=== PATIENT | male | born 1950 | race Caucasian/White ===

== ENCOUNTER 2017-01-21 15:35 | Inpatient (IN) | payer OTHER ==
[2017-01-21] VITALS (10 sets, daily range): BP systolic 79–97; BP diastolic 51–64
[~2017-01-21] VITALS: Ht 172.7 cm; Wt 75.7 kg
[2017-01-21] MEDS ORDERED: IV NORMAL SALINE 1000ML BAG 1,000 ML IV SCH (16:20)
--- NOTE | 2017-01-21 16:24 | ED.ADGEN ---
Adult General Chief Complaint Chief Complaint: ALTERED MENTAL STATUS HPI HPI Patient is a 70 year old male brought to the emergency department by EMS. Per report, he has had a 9 day history of nausea, vomiting, and diarrhea. Patient is currently altered, by no history. The "friend" who is in the room with him has provided a list of his medications and limited history to include daily alcohol consumption except for the last 5 days. Review of Systems Review of Systems Unable to obtain due to the patient's clinical condition Current Medications Current Medications Current Medications Medications (Trade) Dose Ordered Sig/Amador Start Time Stop Time Status Last Admin Dose Admin Ondansetron HCl 4 mg 4 mg PRN Q8HRS PRN 01/21/17 17:45 01/22/17 17:44 Potassium Chloride/Sodium Chloride (KCl 40 Meq-NS 1,000 ml Iv Soln) 1,000 ml @ 75 mls/hr 1X ONCE 01/21/17 17:15 01/22/17 06:34 01/21/17 17:15 75 MLS/HR Sodium Chloride (Iv Sodium Chloride 0.9% 1000ml Bag) 1,000 ml @ 125 mls/hr Q8H 01/21/17 18:00 01/22/17 17:59 01/21/17 17:51 125 MLS/HR Allergies Allergies Allergies Coded Allergies Type Severity Reaction Last Updated Verified Unable to Assess 01/21/17 No Physical Exam Physical Exam Constitutional: Well developed, well nourished, no acute distress, non-toxic appearance. [] HENT: Normocephalic, atraumatic, bilateral external ears normal, oropharynx moist, no oral exudates, nose normal. [] Eyes: Left pupil is 2 mm right pupil is 4 mm, EOMI, conjunctiva normal, no discharge. [] Neck: Normal range of motion, no tenderness, supple, no stridor. [] Cardiovascular:Heart rate regular rhythm, no murmur [] Lungs & Thorax: Bilateral breath sounds clear to auscultation [] Abdomen: Bowel sounds normal, soft, no tenderness, no masses, no pulsatile masses. [] Skin: Warm, dry, no erythema, no rash. [] Back: No tenderness, no CVA tenderness. [] Extremities: No tenderness, no cyanosis, no clubbing, ROM intact, no edema. [] Neurologic: Alert and oriented X 1, normal motor function, normal sensory function, no focal deficits noted. [] Psychologic: Affect normal, judgement normal, mood normal. [] Current Patient Data Vital Signs Vital Signs Date Time Temp Pulse Resp B/P Pulse Ox O2 Delivery O2 Flow Rate FiO2 01/21/17 15:35 97.6 112 24 147/89 98 Nasal Cannula 2 97.6 Lab Values Laboratory Tests Test 01/21/17 16:10 01/21/17 16:35 White Blood Count 13.7x10^3/uL (4.0-11.0) H Red Blood Count 3.35x10^6/uL (4.30-5.70) L Hemoglobin 11.6g/dL (13.0-17.5) L Hematocrit 34.4% (39.0-53.0) L Mean Corpuscular Volume 103fL (79-100) H Mean Corpuscular Hemoglobin 35pg (25-35) Mean Corpuscular Hemoglobin Concent 34g/dL (31-37) Red Cell Distribution Width 15.0% (11.5-14.5) H Platelet Count 190x10^3/uL (140-400) Neutrophils (%) (Auto) 79% (31-73) H Lymphocytes (%) (Auto) 12% (24-48) L Monocytes (%) (Auto) 9% (0-9) Eosinophils (%) (Auto) 0% (0-3) Basophils (%) (Auto) 1% (0-3) Neutrophils # (Auto) 10.8x10^3uL (1.8-7.7) H Lymphocytes # (Auto) 1.6x10^3/uL (1.0-4.8) Monocytes # (Auto) 1.2x10^3/uL (0.0-1.1) H Eosinophils # (Auto) 0.0x10^3/uL (0.0-0.7) Basophils # (Auto) 0.1x10^3/uL (0.0-0.2) Sodium Level 131mmol/L (136-145) L Potassium Level 2.8mmol/L (3.5-5.1) *L Chloride Level 91mmol/L (98-107) L Carbon Dioxide Level 28mmol/L (21-32) Anion Gap 12 (6-14) Blood Urea Nitrogen 15mg/dL (8-26) Creatinine 1.3mg/dL (0.7-1.3) Estimated GFR (Cockcroft-Gault) 54.9 BUN/Creatinine Ratio 12 (6-20) Glucose Level 104mg/dL (70-99) H Lactic Acid Level 4.2mmol/L (0.4-2.0) *H Calcium Level 8.2mg/dL (8.5-10.1) L Total Bilirubin 1.5mg/dL (0.2-1.0) H Aspartate Amino Transferase (AST) 51U/L (15-37) H Alanine Aminotransferase (ALT) 22U/L (16-63) Alkaline Phosphatase 304U/L (46-116) H Ammonia 28mcmol/L (11-34) Creatine Kinase 50U/L (39-308) Troponin I Quantitative 0.017ng/mL (0.000-0.055) RZ-Qlg-A-Type Natriuretic Peptide 1049pg/mL (0-124) H Total Protein 6.5g/dL (6.4-8.2) Albumin 2.7g/dL (3.4-5.0) L Albumin/Globulin Ratio 0.7 (1.0-1.7) L Lipase 30U/L (73-393) L Ethyl Alcohol Level < 10mg/dL (0-10) Prothrombin Time 13.9SEC (11.7-14.0) Prothrombin Time INR 1.1 (0.8-1.1) PTT 28SEC (24-38) Laboratory Tests 01/21/17 16:10 Laboratory Tests 01/21/17 16:10 EKG EKG [] Radiology/Procedures Radiology/Procedures Chest x-ray interpreted by me, no acute cardiopulmonary process. [] Course & Med Decision Making Course & Med Decision Making Pertinent Labs and Imaging studies reviewed. (See chart for details) Patient is certainly altered. He is also hypokalemic and we have started replace that here in emergency department. He shows evidence of mild heart failure. He does have little bit elevated lactate and leukocytosis however his x -ray is clear. Urine is pending at the time of admission. His blood pressures responding to the fluid bolus. I did speak with Dr. Kee regarding the patient's care. [] Dragon Disclaimer Dragon Disclaimer This electronic medical record was generated, in whole or in part, using a voice recognition dictation system. IMAN BOBO MD Jan 21, 2017 16:23
[2017-01-21] MEDS ORDERED: ONDANSETRON PF 4 MG/2 ML VIAL. IV ONE (16:30)
[2017-01-21 16:32] LABS: BASO # 0.1 x10^3/uL (0.0-0.2); BASO % 1 % (0-3); EOS % 0 % (0-3); HEMATOCRIT 34.4 % (39.0-53.0); HEMOGLOBIN 11.6 g/dL (13.0-17.5); LYMPH # 1.6 x10^3/uL (1.0-4.8); LYMPH % 12 % (24-48); MEAN CORPUSCULAR HEMOGLOBIN 35 pg (25-35); MEAN CORPUSCULAR HGB CONC 34 g/dL (31-37); MEAN CORPUSCULAR VOLUME 103 fL (79-100); MONO % 9 % (0-9); NEUT % 79 % (31-73); PLATELET COUNT 190 x10^3/uL (140-400); RED BLOOD COUNT 3.35 x10^6/uL (4.30-5.70); WHITE BLOOD COUNT 13.7 x10^3/uL (4.0-11.0)
[2017-01-21 16:54] LABS: ALBUMIN 2.7 g/dL (3.4-5.0); ALBUMIN/GLOBULIN RATIO 0.7 (1.0-1.7); CALCIUM 8.2 mg/dL (8.5-10.1); CREATININE 1.3 mg/dL (0.7-1.3); GFR 54.9; TOTAL BILIRUBIN 1.5 mg/dL (0.2-1.0); TOTAL PROTEIN 6.5 g/dL (6.4-8.2)
[2017-01-21 16:57] LABS: POTASSIUM 2.8 mmol/L (3.5-5.1)
[2017-01-21 17:02] LABS: INR 1.1 (0.8-1.1); PROTHROMBIN TIME PATIENT 13.9 SEC (11.7-14.0)
--- NOTE | 2017-01-21 17:05 | RAD ---
PROCEDURE CT head without contrast dated 01/21/2017. HISTORY Altered mental status. TECHNIQUE Contiguous axial imaging of the head was performed from skull base to vertex.Exposure: One or more of the following individualized dose reduction techniques were utilized for this exam: 1. Automated exposure control. 2. Adjustment of the mA and/or kV according to patient size. 3. Use of iterative reconstruction technique. COMPARISON None. FINDINGS Ventricles and sulci are mildly prominent for age. No midline shift or mass effect. Minimal patchy low density in the deep/subcortical periventricular white matter. No hemorrhage or extra-axial collection. Posterior fossa and brainstem unremarkable. Visualized paranasal sinuses and mastoid air cells are clear. No acute calvarial abnormality. IMPRESSION - No evidence of acute intracranial hemorrhage or mass. - Age advanced atrophy. Electronically signed by: Tavon Camacho (Jan 21, 2017 17:03:38)
[2017-01-21] MEDS ORDERED: POTASSIUM CL 40MEQ IN 0.9%NACL 1,000 ML IV ONE (17:15)
[2017-01-21] MEDS ORDERED: ONDANSETRON PF 4 MG/2 ML VIAL. IV PRN (17:45)
[2017-01-21] MEDS: IV NORMAL SALINE 1000ML BAG 1,000 ML IV SCH (17:51)
[2017-01-21] MEDS ORDERED: HALOPERIDOL LACTATE 5 MG/ML VIAL. IVP PRN ×2 (20:30→21:00)
[2017-01-21] MEDS: POTASSIUM CHLORIDE 10MEQ 100 ML IV SCH ×3 (20:54→23:56)
[2017-01-21] MEDS: NOREPINEPHRINE VIAL 8 MG in IV NORMAL SALINE 250ML 250 ML IV PRN (21:52)
[2017-01-21] MEDS ORDERED: MULTIVIT INFUSN,ADULT 4,VIT K 10 ML, FOLIC ACID 1 MG, THIAMINE 100 MG in IV DEXTROSE 5 ... IV SCH (22:00)
[2017-01-21] MEDS ORDERED: LORA10TA3 PO (23:15)
[2017-01-21] MEDS ORDERED: FOLI1TAB16 PO (23:15)
[2017-01-21] MEDS ORDERED: FERR-26 PO (23:15)
[2017-01-21] MEDS ORDERED: PANT40TA5 PO (23:15)
[2017-01-21] MEDS ORDERED: LOSA1TAB16 PO (23:15)
[2017-01-22] VITALS (43 sets, daily range): BP systolic 65–119; BP diastolic 39–78
[2017-01-22] MEDS: POTASSIUM CHLORIDE 10MEQ 100 ML IV SCH ×5 (01:56→11:52)
[2017-01-22 06:01] LABS: BASO # 0.1 x10^3/uL (0.0-0.2); BASO % 1 % (0-3); EOS % 2 % (0-3); HEMATOCRIT 28.6 % (39.0-53.0); HEMOGLOBIN 9.7 g/dL (13.0-17.5); LYMPH # 3.3 x10^3/uL (1.0-4.8); LYMPH % 23 % (24-48); MEAN CORPUSCULAR HEMOGLOBIN 35 pg (25-35); MEAN CORPUSCULAR HGB CONC 34 g/dL (31-37); MEAN CORPUSCULAR VOLUME 104 fL (79-100); MONO % 10 % (0-9); NEUT % 65 % (31-73); PLATELET COUNT 181 x10^3/uL (140-400); RED BLOOD COUNT 2.75 x10^6/uL (4.30-5.70); WHITE BLOOD COUNT 14.4 x10^3/uL (4.0-11.0)
[2017-01-22 06:38] LABS: ALBUMIN 2.1 g/dL (3.4-5.0); ALBUMIN/GLOBULIN RATIO 0.7 (1.0-1.7); CALCIUM 7.4 mg/dL (8.5-10.1); GFR 75.2; MAGNESIUM 1.6 mg/dL (1.8-2.4); POTASSIUM 3.1 mmol/L (3.5-5.1); TOTAL BILIRUBIN 1.3 mg/dL (0.2-1.0); TOTAL PROTEIN 5.2 g/dL (6.4-8.2)
[2017-01-22 06:50] LABS: BARBITURATES NEG (NEG); BENZODIAZEPINES NEG (NEG); CANNABINOIDS POS (NEG); COCAINE NEG (NEG); METHADONE NEG (NEG); OPIATES NEG (NEG); PHENCYCLIDINE NEG (NEG)
[2017-01-22 06:52] LABS: ETHANOL, URINE NEG (NEG)
[2017-01-22 07:00] LABS: BILIRUBIN,URINE MODERATE (NEG); GLUCOSE,URINE NEGATIVE (NEG); NITRITE,URINE POSITIVE (NEG); PH,URINE 6.5; PROTEIN,URINE 30 mg/dL (NEG-TRACE)
[2017-01-22 07:15] LABS: BACTERIA,URINE 0 /HPF (0-FEW); RBC,URINE 0 /HPF (0-2); SQUAMOUS EPITHELIAL CELL,UR FEW /LPF
[2017-01-22] MEDS ORDERED: POTASSIUM CHLORIDE 10MEQ 100 ML IV PRN ×3 (08:15)
--- NOTE | 2017-01-22 08:29 | RAD ---
EXAM: Chest, single view. HISTORY: Altered mental status. COMPARISON: None. FINDINGS: A frontal view of the chest is obtained. There is no infiltrate, effusion or pneumothorax. There is mild biapical pleural-parenchymal scarring. There is a calcified granuloma within the left lung base. The heart is normal in size. IMPRESSION: No acute pulmonary finding.
[2017-01-22] MEDS: IV NORMAL SALINE 1000ML BAG 1,000 ML IV SCH ×2 (08:39→14:00)
[2017-01-22] MEDS ORDERED: MAGNESIUM SULFATE 4GM 100 ML IV PRN (09:00)
--- NOTE | 2017-01-22 09:57 | PDOC ---
Provider Note Provider Note See admission H&P dictation #[id number] Impression: 1. Sepsis as manifested by leukocytosis, hypotension, encephalopathy, lactic acidosis possibly due to prostate etiology: 2. Hypotension probably due to dehydration or sepsis, rule out cardiomyopathy: 3. Alcohol abuse and possible withdrawal: 4. Encephalopathy, multifactorial: 5. Possible prostatitis/UTI: 6. History of hypertension: 7. Hypokalemia: 8. Nausea, vomiting, diarrhea with possible alcoholic hepatitis: 9. Low magnesium level: 10. Moderate/severe protein malnutrition: 11. History of hepatitis C: 12. COPD: 13. Debilitation: ERIC HAND MD Jan 22, 2017 09:57
[2017-01-22] MEDS: CEFTRIAXONE SODIUM 1 GM in IV NORMAL SALINE 50ML 50 ML IV SCH (10:10)
[2017-01-22] MEDS: IPRATRPIUM/ALBUTEROL 0.5/2.5MG 3 ML NEBU. NEB SCH ×3 (11:26→19:31)
--- NOTE | 2017-01-22 13:02 | CARD ---
APPROVED REPORT EXAM: Two-dimensional and M-mode echocardiogram with Doppler and color Doppler. Other Information Quality : Fair INDICATION LV Function:Systolic Rule out Cardiomyopathy 2D DIMENSIONS RVDd2.3 (2.9-3.5cm)Left Atrium(2D)3.5 (1.6-4.0cm) IVSd1.3 (0.7-1.1cm)Aortic Root(2D)2.6 (2.0-3.7cm) LVDd3.8 (3.9-5.9cm)LVOT Diameter2.0 (1.8-2.4cm) PWd1.0 (0.7-1.1cm)LVDs2.4 (2.5-4.0cm) FS (%) 30.0 %SV42.2 ml LVEF(%)60.0 (>50%) Aortic Valve AoV Peak Aly.125.3cm/sAoV VTI19.5cm AO Peak GR.6.3mmHgLVOT VTI 14.49cm AO Mean GR.3mmHgAVA (VTI)2.30cm2 Mitral Valve MV E Mvtgrnym329.2cm/sMV E Peak Gr.12mmHg MV DECEL [id number] A Gkfpfdgl916.8cm/s MV E Mean Gr.5mmHgE/A Ratio0.8 MVA (PHT)3.20cm2 TDI Lateral E' P. V5.73cm/sMedial E' P. V6.37cm/s E/Lateral E'24.8E/Medial E'22.3 Tricuspid Valve TR P. [id number]/sRAP QHCVHRAD1bxLw TR Peak Gr.96xnIgBKTM60evMj Pulmonary Vein S1 Zlzjevkv51.8cm/sS2 Zdwozgzu94.43cm/s D2 Umncitdi20.4cm/sPVa plombkfm148zjet LEFT VENTRICLE The left ventricle is normal size. There is mild concentric left ventricular hypertrophy. The left ve ntricular systolic function is normal and the ejection fraction is within normal range. The Ejection Fraction is 55-60%. Transmitral Doppler flow pattern is Grade I-abnormal relaxation pattern. RIGHT VENTRICLE The right ventricle is normal size. The right ventricular systolic function is normal. ATRIA The left atrium size is normal. The right atrium size is normal. The interatrial septum is intact wit h no evidence for an atrial septal defect or patent foramen ovale as noted on 2-D or Doppler imaging. AORTIC VALVE The aortic valve is calcified but opens well. Doppler and Color Flow revealed no significant aortic r egurgitation. There is no significant aortic valvular stenosis. MITRAL VALVE The mitral valve is moderately thickened with decreased opening. There is no evidence of mitral valve prolapse. There is mild mitral valve stenosis. Doppler and Color-flow revealed mild mitral regurgita tion. TRICUSPID VALVE The tricuspid valve is normal in structure and function. Doppler and Color Flow revealed trace tricus pid regurgitation. The PA pressure was estimated at 30 mmHg. There is no tricuspid valve stenosis. PULMONIC VALVE The pulmonary valve is normal in structure and function. Doppler and Color Flow revealed trace pulmon ic valvular regurgitation. There is no pulmonic valvular stenosis. GREAT VESSELS The aortic root is normal in size. The ascending aorta is mildly dilated at 3.8 cm. The IVC was not v isualized. PERICARDIAL EFFUSION There is no evidence of significant pericardial effusion. Critical Notification Critical Value: No <Conclusion> The left ventricle is normal size. The left ventricular systolic function is normal and the ejection fraction is within normal range. The Ejection Fraction is 55-60%. There is mild concentric left ventricular hypertrophy. There is no significant aortic valvular stenosis. Doppler and Color Flow revealed no significant aortic regurgitation. Doppler and Color-flow revealed mild mitral regurgitation. Doppler and Color Flow revealed trace tricuspid regurgitation. The PA pressure was estimated at 30 mmHg. The ascending aorta is mildly dilated at 3.8 cm.
--- NOTE | 2017-01-22 13:12 | HP ---
ADMIT DATE: 01/22/2017 ATTENDING PHYSICIAN: Yane Fuller M.D. CHIEF COMPLAINT: Altered mental status. HISTORY OF PRESENT ILLNESS: The patient is a 66-year-old male with a history of COPD and alcohol abuse who presented to the Emergency Room with his significant other after becoming increasingly confused. The patient had his last drink of alcohol, which he usually drinks a half a pint a day of liquor approximately 8 days prior. After that, he developed nausea, vomiting and diarrhea. He was unable to keep down any food and very minimal liquids over the course of that 8 days. He was progressively weaker. He denies any hematemesis or hematochezia. He denies any abdominal pain. No fever. He does not have a history of alcohol withdrawal symptoms in the past 20 years, quit drinking alcohol per his significant other report. PAST MEDICAL HISTORY: Significant for hypertension, COPD, hepatitis C, alcohol abuse, dyspepsia, iron deficiency anemia. 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 ALLERGIES TO MEDICATIONS: No known drug allergies. MEDICATIONS: At the time of admission include iron 325 mg p.o. daily, Protonix 40 mg p.o. daily, Combivent 1 puff q.i.d., loratadine 10 mg p.o. daily, folic acid 1 mg p.o. daily, losartan/hydrochlorothiazide 50/12.5 mg one p.o. daily. FAMILY HISTORY: Noncontributory. SOCIAL HISTORY: The patient lives with his significant other. He drinks about one half pint per day, he usually, but quit 8 days ago due to his illness. He normally smokes 1-1/2 packs per day. REVIEW OF SYSTEMS: The patient denies any fevers. He did have a mild headache last night after admission. Denies any visual changes, no excessive agitation, swallowing without difficulty. Denies any shortness of breath or cough of any significance. Denies any chest pain or palpitations. No lower extremity swelling. Denies any abdominal bloating or discomfort. Denies any dysuria, but he does have some difficulty urinating at times. We did notice there was difficulty in passing the Burnette catheter on admission. He denies any focal paresthesias or weakness, although he does have generalized weakness in the lower extremities as he mostly just sits in the chair all day and does not get up and walk all that much. PHYSICAL EXAMINATION: VITAL SIGNS: At the time of admission, temperature 97.6, pulse 112, respiratory rate 24, blood pressure 147/89 with O2 sat of 98% on room air. GENERAL: Currently, the patient is lying in bed in no acute distress. He is able to carry on a full code here in conversation. He is oriented to person, place and day of the week. HEENT: The pupils are equal and round. The extraocular motions are intact. The sclerae are anicteric. The oropharynx is moist. Dentition is poor. NECK: Without JVD or bruit. CHEST: Has mildly decreased air movement throughout, but otherwise is clear. CARDIOVASCULAR: The heart has regular rate and rhythm without murmur, although the heart sounds are distant. ABDOMEN: Soft and nontender, without any guarding or rebound. EXTREMITIES: Without edema. He has SCDs on at present. NEUROLOGIC: He moves the extremities symmetrically. Sensation appears to be intact to light touch. PSYCHIATRIC: Mood and affect appear appropriate. He denies any depression. LABORATORY DATA: At the time of admission, sodium 131, potassium 2.8, chloride 91, CO2 of 28, BUN 15, creatinine 1.3, glucose 104, calcium 8.2, albumin was 2.7, total bilirubin was 1.5, AST is 51, alkaline phosphatase is 304. CK was 50. Troponin was 0.017. BNP was 1049. Lipase was 30. Urine drug screen was negative for alcohol, positive for marijuana. UA shows specific gravity of 1.025, protein 30, ketones trace, nitrite positive, bilirubin moderate, leukocyte esterase small, wbc 1-4, squamous epithelial cells few, urine mucus marked. WBC 13.7, hemoglobin 11.6, hematocrit 34.4, platelets 190 with 79 segs, [address] of the head showed no evidence of acute intracranial hemorrhage or mass. There is age advanced atrophy. X-ray of the chest shows no acute pulmonary findings. There is mild biapical pleural parenchymal scarring, calcified granuloma in the left lung base. The heart was normal in size. IMPRESSION: 1. Sepsis is manifest by leukocytosis, hypotension, encephalopathy with lactic acidosis, possibly due to prostate infection etiology. 2. Hypotension, probably due to dehydration or sepsis, rule out cardiomyopathy. 3. Alcohol abuse with possible withdrawal. 4. Encephalopathy, probably multifactorial in etiology. 5. Possible prostatitis, urinary tract infection. 6. History of hypertension. 7. Hypokalemia. 8. Nausea, vomiting, diarrhea with possible alcoholic hepatitis superimposed on chronic hepatitis C. 9. Low magnesium level. 10. Debilitation. 11. COPD. 12. Moderate to severe protein malnutrition. PLAN: The patient is admitted. He is receiving vigorous IV fluid hydration. We will check an echocardiogram to evaluate his heart, with his hypotension, he is on pressors at present. His encephalopathy appears to be much improved with fluid resuscitation. Given his elevated white blood cell count, difficulty passing the Burnette and mildly abnormal UA, we will begin him on empiric antibiotics with Rocephin for possible prostatitis, which could have been contributing to his symptoms. Blood cultures and urine culture pending at present and we can deescalate the antibiotics if those were all negative and he continues to improve, we can consider deescalating the antibiotics. We will hold his blood pressure medicine at present. We will monitor for other withdrawal symptoms. We will replace his potassium and magnesium. We will slowly advance his diet and nutrition evaluation regarding his protein malnutrition. We will also use nebulizer treatments for his COPD history. ERIC HAND MD DR: EZEQUIEL/rodney JOB#: [id number] / [id number]
[2017-01-22] MEDS: CETIRIZINE HCL 10 MG TABLET. PO SCH (14:00)
[2017-01-22] MEDS: FERROUS SULFATE 325 MG TABLET. PO SCH (14:00)
[2017-01-22] MEDS: FOLIC ACID 1 MG TABLET. PO SCH (14:00)
[2017-01-22] MEDS: PANTOPRAZOLE 40 MG TABLET.DR. PO SCH (14:00)
[2017-01-22] MEDS ORDERED: LORAZEPAM 0.5 MG TABLET. PO PRN (17:30)
[2017-01-22] MEDS: LORAZEPAM 1 MG TABLET. PO PRN (17:36)
[2017-01-22 18:53] LABS: MAGNESIUM 2.5 mg/dL (1.8-2.4); POTASSIUM 3.5 mmol/L (3.5-5.1)
[2017-01-22] MEDS ORDERED: POTASSIUM CHLORIDE 20 MEQ TABLET.ER. PO ONE (20:30)
[2017-01-22] MEDS: NOREPINEPHRINE VIAL 8 MG in IV NORMAL SALINE 250ML 250 ML IV PRN (20:32)
[2017-01-23] VITALS (18 sets, daily range): BP systolic 88–135; BP diastolic 58–85
[2017-01-23] MEDS: IV NORMAL SALINE 1000ML BAG 1,000 ML IV SCH ×2 (00:36→17:30)
[2017-01-23 04:33] LABS: BASO # 0.2 x10^3/uL (0.0-0.2); BASO % 1 % (0-3); EOS % 2 % (0-3); HEMATOCRIT 27.5 % (39.0-53.0); LYMPH # 2.7 x10^3/uL (1.0-4.8); LYMPH % 17 % (24-48); MEAN CORPUSCULAR HEMOGLOBIN 35 pg (25-35); MEAN CORPUSCULAR HGB CONC 33 g/dL (31-37); MEAN CORPUSCULAR VOLUME 107 fL (79-100); MONO % 9 % (0-9); NEUT % 72 % (31-73); PLATELET COUNT 192 x10^3/uL (140-400); RED BLOOD COUNT 2.58 x10^6/uL (4.30-5.70); RED CELL DISTRIBUTION WIDTH 15.1 % (11.5-14.5); WHITE BLOOD COUNT 16.5 x10^3/uL (4.0-11.0)
[2017-01-23 04:46] LABS: ALBUMIN/GLOBULIN RATIO 0.7 (1.0-1.7); CALCIUM 7.5 mg/dL (8.5-10.1); CREATININE 0.7 mg/dL (0.7-1.3); GFR 113.5; POTASSIUM 3.9 mmol/L (3.5-5.1); TOTAL BILIRUBIN 0.8 mg/dL (0.2-1.0)
[2017-01-23] MEDS: NOREPINEPHRINE VIAL 8 MG in IV NORMAL SALINE 250ML 250 ML IV PRN (06:08)
--- NOTE | 2017-01-23 08:46 | PDOC ---
PROGRESS NOTES Subjective Subjective Patient asking to transfer out of ICU. Alert and oriented but appears somewhat forgetful. Objective Objective Vital Signs Date Time Temp Pulse Resp B/P Pulse Ox O2 Delivery O2 Flow Rate FiO2 01/23/17 06:00 107 14 125/80 98 Nasal Cannula 2.0 01/23/17 03:00 98.7 98.7 Intake and Output 01/23/17 07:00 Intake Total 5179 ml Output Total 3000 ml Balance 2179 ml Intake IV Total 2450 ml Other 2729 ml Output Urine Total 3000 ml Physical Exam Abdomen: Normal bowel sounds, Soft, No tenderness Heart: Regular rate Extremities: No edema General: Alert, No acute distress Lungs: Other (BS mildly decreased throughout but otherwise CTA) Assessment Assessment Problems Medical Problems: (1) Alcohol abuse Status: Acute (2) Encephalopathy Status: Acute (3) Heart failure Status: Acute (4) Hypokalemia Status: Acute Plan Plan of Care 1. Sepsis - hypotension has improved, trying him off pressors presently. Blood and urine cultures negative to date, afebrile. Continue Rocephin for possible UTI or prostatitis. Can move out of ICU if off pressors. Echo showed mild diastolic dysfunction with preserved EF. 2. electrolyte abnormalities - improved. Does not need IVF now, taking po well and BUN now low. Fluids stopped, follow labs. 3. COPD - stable, continue nebs as needed. Patient declines nicotine patch. 4. anemia - patient has history of this. Hgb lower now but suspect some of that is dilutional. No evidence of acute bleeding. Continue po Fe and follow. 5. alcohol abuse with history of Hep C - no s/s of withdrawal, prn meds available for this if needed. AST mildly elevated. 6. urinary retention - some difficulty passing [place] at admission. Continue catheter for another 24 hours, then attempt voiding trial. Comment Review of Relevant I have reviewed the following items christie (where applicable) has been applied. Labs Laboratory Tests Test 01/21/17 16:10 01/21/17 16:35 01/21/17 17:40 01/21/17 20:00 White Blood Count 13.7x10^3/uL (4.0-11.0) Red Blood Count 3.35x10^6/uL (4.30-5.70) Hemoglobin 11.6g/dL (13.0-17.5) Hematocrit 34.4% (39.0-53.0) Mean Corpuscular Volume 103fL (79-100) Mean Corpuscular Hemoglobin 35pg (25-35) Mean Corpuscular Hemoglobin Concent 34g/dL (31-37) Red Cell Distribution Width 15.0% (11.5-14.5) Platelet Count 190x10^3/uL (140-400) Neutrophils (%) (Auto) 79% (31-73) Lymphocytes (%) (Auto) 12% (24-48) Monocytes (%) (Auto) 9% (0-9) Eosinophils (%) (Auto) 0% (0-3) Basophils (%) (Auto) 1% (0-3) Neutrophils # (Auto) 10.8x10^3uL (1.8-7.7) Lymphocytes # (Auto) 1.6x10^3/uL (1.0-4.8) Monocytes # (Auto) 1.2x10^3/uL (0.0-1.1) Eosinophils # (Auto) 0.0x10^3/uL (0.0-0.7) Basophils # (Auto) 0.1x10^3/uL (0.0-0.2) Sodium Level 131mmol/L (136-145) Potassium Level 2.8mmol/L (3.5-5.1) Chloride Level 91mmol/L (98-107) Carbon Dioxide Level 28mmol/L (21-32) Anion Gap 12 (6-14) Blood Urea Nitrogen 15mg/dL (8-26) Creatinine 1.3mg/dL (0.7-1.3) Estimated GFR (Cockcroft-Gault) 54.9 BUN/Creatinine Ratio 12 (6-20) Glucose Level 104mg/dL (70-99) Lactic Acid Level 4.2mmol/L (0.4-2.0) 3.2mmol/L (0.4-2.0) Calcium Level 8.2mg/dL (8.5-10.1) Total Bilirubin 1.5mg/dL (0.2-1.0) Aspartate Amino Transf (AST/SGOT) 51U/L (15-37) Alanine Aminotransferase (ALT/SGPT) 22U/L (16-63) Alkaline Phosphatase 304U/L (46-116) Ammonia 28mcmol/L (11-34) Creatine Kinase 50U/L (39-308) Troponin I Quantitative 0.017ng/mL (0.000-0.055) KU-Iby-H-Type Natriuretic Peptide 1049pg/mL (0-124) Total Protein 6.5g/dL (6.4-8.2) Albumin 2.7g/dL (3.4-5.0) Albumin/Globulin Ratio 0.7 (1.0-1.7) Lipase 30U/L (73-393) Ethyl Alcohol Level < 10mg/dL (0-10) Prothrombin Time 13.9SEC (11.7-14.0) Prothromb Time International Ratio 1.1 (0.8-1.1) Activated Partial Thromboplast Time 28SEC (24-38) Nasal Screen MRSA (PCR) Negative (Negative) Test 01/22/17 05:00 01/22/17 05:17 01/22/17 18:15 01/23/17 03:55 White Blood Count 14.4x10^3/uL (4.0-11.0) 16.5x10^3/uL (4.0-11.0) Red Blood Count 2.75x10^6/uL (4.30-5.70) 2.58x10^6/uL (4.30-5.70) Hemoglobin 9.7g/dL (13.0-17.5) 9.0g/dL (13.0-17.5) Hematocrit 28.6% (39.0-53.0) 27.5% (39.0-53.0) Mean Corpuscular Volume 104fL (79-100) 107fL (79-100) Mean Corpuscular Hemoglobin 35pg (25-35) 35pg (25-35) Mean Corpuscular Hemoglobin Concent 34g/dL (31-37) 33g/dL (31-37) Red Cell Distribution Width 15.0% (11.5-14.5) 15.1% (11.5-14.5) Platelet Count 181x10^3/uL (140-400) 192x10^3/uL (140-400) Neutrophils (%) (Auto) 65% (31-73) 72% (31-73) Lymphocytes (%) (Auto) 23% (24-48) 17% (24-48) Monocytes (%) (Auto) 10% (0-9) 9% (0-9) Eosinophils (%) (Auto) 2% (0-3) 2% (0-3) Basophils (%) (Auto) 1% (0-3) 1% (0-3) Neutrophils # (Auto) 9.3x10^3uL (1.8-7.7) 11.9x10^3uL (1.8-7.7) Lymphocytes # (Auto) 3.3x10^3/uL (1.0-4.8) 2.7x10^3/uL (1.0-4.8) Monocytes # (Auto) 1.4x10^3/uL (0.0-1.1) 1.5x10^3/uL (0.0-1.1) Eosinophils # (Auto) 0.3x10^3/uL (0.0-0.7) 0.3x10^3/uL (0.0-0.7) Basophils # (Auto) 0.1x10^3/uL (0.0-0.2) 0.2x10^3/uL (0.0-0.2) Sodium Level 133mmol/L (136-145) 137mmol/L (136-145) Potassium Level 3.1mmol/L (3.5-5.1) 3.5mmol/L (3.5-5.1) 3.9mmol/L (3.5-5.1) Chloride Level 98mmol/L (98-107) 106mmol/L (98-107) Carbon Dioxide Level 27mmol/L (21-32) 23mmol/L (21-32) Anion Gap 8 (6-14) 8 (6-14) Blood Urea Nitrogen 13mg/dL (8-26) 7mg/dL (8-26) Creatinine 1.0mg/dL (0.7-1.3) 0.7mg/dL (0.7-1.3) Estimated GFR (Cockcroft-Gault) 75.2 113.5 BUN/Creatinine Ratio 13 (6-20) 10 (6-20) Glucose Level 138mg/dL (70-99) 131mg/dL (70-99) Calcium Level 7.4mg/dL (8.5-10.1) 7.5mg/dL (8.5-10.1) Magnesium Level 1.6mg/dL (1.8-2.4) 2.5mg/dL (1.8-2.4) 2.4mg/dL (1.8-2.4) Total Bilirubin 1.3mg/dL (0.2-1.0) 0.8mg/dL (0.2-1.0) Aspartate Amino Transf (AST/SGOT) 37U/L (15-37) 40U/L (15-37) Alanine Aminotransferase (ALT/SGPT) 18U/L (16-63) 18U/L (16-63) Alkaline Phosphatase 225U/L (46-116) 240U/L (46-116) Total Protein 5.2g/dL (6.4-8.2) 5.0g/dL (6.4-8.2) Albumin 2.1g/dL (3.4-5.0) 2.0g/dL (3.4-5.0) Albumin/Globulin Ratio 0.7 (1.0-1.7) 0.7 (1.0-1.7) Thyroid Stimulating Hormone (TSH) 3.258uIU/mL (0.358-3.74) Urine Collection Type Unknown Urine Color Brown Urine Clarity Clear Urine pH 6.5 Urine Specific [place] 1.025 Urine Protein 30mg/dL (NEG-TRACE) Urine Glucose (UA) Negativemg/dL (NEG) Urine Ketones (Stick) Tracemg/dL (NEG) Urine Blood Negative (NEG) Urine Nitrite Positive (NEG) Urine Bilirubin Moderate (NEG) Urine Urobilinogen Dipstick 1.0mg/dL (0.2 mg/dL) Urine Leukocyte Esterase Small (NEG) Urine RBC 0/HPF (0-2) Urine WBC 1-4/HPF (0-4) Urine Squamous Epithelial Cells Few/LPF Urine Bacteria 0/HPF (0-FEW) Urine Mucus Marked/LPF Urine Opiates Screen Neg (NEG) Urine Methadone Screen Neg (NEG) Urine Barbiturates Neg (NEG) Urine Phencyclidine Screen Neg (NEG) Urine Amphetamine/Methamphetamine Neg (NEG) Urine Benzodiazepines Screen Neg (NEG) Urine Cocaine Screen Neg (NEG) Urine Cannabinoids Screen Pos (NEG) Urine Ethyl Alcohol Neg (NEG) Laboratory Tests Test 01/22/17 18:15 01/23/17 03:55 Potassium Level 3.5mmol/L (3.5-5.1) 3.9mmol/L (3.5-5.1) Magnesium Level 2.5mg/dL (1.8-2.4) 2.4mg/dL (1.8-2.4) White Blood Count 16.5x10^3/uL (4.0-11.0) Red Blood Count 2.58x10^6/uL (4.30-5.70) Hemoglobin 9.0g/dL (13.0-17.5) Hematocrit 27.5% (39.0-53.0) Mean Corpuscular Volume 107fL (79-100) Mean Corpuscular Hemoglobin 35pg (25-35) Mean Corpuscular Hemoglobin Concent 33g/dL (31-37) Red Cell Distribution Width 15.1% (11.5-14.5) Platelet Count 192x10^3/uL (140-400) Neutrophils (%) (Auto) 72% (31-73) Lymphocytes (%) (Auto) 17% (24-48) Monocytes (%) (Auto) 9% (0-9) Eosinophils (%) (Auto) 2% (0-3) Basophils (%) (Auto) 1% (0-3) Neutrophils # (Auto) 11.9x10^3uL (1.8-7.7) Lymphocytes # (Auto) 2.7x10^3/uL (1.0-4.8) Monocytes # (Auto) 1.5x10^3/uL (0.0-1.1) Eosinophils # (Auto) 0.3x10^3/uL (0.0-0.7) Basophils # (Auto) 0.2x10^3/uL (0.0-0.2) Sodium Level 137mmol/L (136-145) Chloride Level 106mmol/L (98-107) Carbon Dioxide Level 23mmol/L (21-32) Anion Gap 8 (6-14) Blood Urea Nitrogen 7mg/dL (8-26) Creatinine 0.7mg/dL (0.7-1.3) Estimated GFR (Cockcroft-Gault) 113.5 BUN/Creatinine Ratio 10 (6-20) Glucose Level 131mg/dL (70-99) Calcium Level 7.5mg/dL (8.5-10.1) Total Bilirubin 0.8mg/dL (0.2-1.0) Aspartate Amino Transf (AST/SGOT) 40U/L (15-37) Alanine Aminotransferase (ALT/SGPT) 18U/L (16-63) Alkaline Phosphatase 240U/L (46-116) Total Protein 5.0g/dL (6.4-8.2) Albumin 2.0g/dL (3.4-5.0) Albumin/Globulin Ratio 0.7 (1.0-1.7) Microbiology 01/21/17 Blood Culture - Preliminary, Resulted NO GROWTH AFTER 1 DAY Medications Current Medications Ondansetron HCl 4 mg 4 mg 1X ONCE IV Last administered on 01/21/17 16:29; Start 01/21/17 at 16:30; Stop 01/21/17 at 16:31; Status DC Sodium Chloride 1,000 ml @ 1,000 mls/hr Q1H IV Last administered on 01/21/17 16:29; Start 01/21/17 at 16:20; Stop 01/21/17 at 17:19; Status DC Potassium Chloride/Sodium Chloride (KCl 40 Meq-NS 1,000 ml Iv Soln) 1,000 ml @ 75 mls/hr 1X ONCE IV Last administered on 01/21/17 17:15; Start 01/21/17 at 17: 15; Stop 01/22/17 at 06:34; Status DC Ondansetron HCl 4 mg 4 mg PRN Q8HRS PRN IV NAUSEA/VOMITING; Start 01/21/17 at 17 :45; Stop 01/22/17 at 17:44; Status DC Sodium Chloride 1,000 ml @ 125 mls/hr Q8H IV Last administered on 01/22/17 14: 00; Start 01/21/17 at 18:00; Stop 01/22/17 at 17:59; Status DC Multivitamins 10 ml/Folic Acid 1 mg/Thiamine HCl 100 mg/Dextrose/ Sodium Chloride 1,011.2 ml @ 100 mls/ hr DAILY IV Last administered on 01/21/17 22:10 ; Start 01/21/17 at 22:00; Stop 01/26/17 at 19:07 Norepinephrine Bitartrate 8 mg/ Sodium Chloride 258 ml @ 0 mls/hr CONT PRN IV SEE I/O RECORD Last administered on 01/23/17 06:08; Start 01/21/17 at 20:30 Potassium Chloride (KCl Premix 10meq) 100 ml @ 100 mls/hr Q1H IV Last administered on 01/22/17 01:56; Start 01/21/17 at 21:00; Stop 01/22/17 at 00:59; Status DC Haloperidol Lactate (Haldol) 1 mg PRN Q2HR PRN IVP MILD AGITATION Last administered on 01/22/17 00:00; Start 01/21/17 at 20:30 Haloperidol Lactate 2 mg 2 mg PRN Q2HR PRN IVP MODERATE AGITATION Last administered on 01/22/17 17:40; Start 01/21/17 at 21:00 Potassium Chloride 100 ml @ 100 mls/hr PRN Q1HR PRN IV SEE COMMENTS; Start 01/22/17 at 08:15 Potassium Chloride 100 ml @ 100 mls/hr PRN Q1HR PRN IV SEE COMMENTS; Start 01/22/17 at 08:15 Potassium Chloride 100 ml @ 100 mls/hr PRN Q1HR PRN IV SEE COMMENTS; Start 01/22/17 at 08:15 Magnesium Sulfate/ Dextrose 100 ml @ 50 mls/hr PRN DAILY PRN IV SEE COMMENTS Last administered on 01/22/17 08:57; Start 01/22/17 at 09:00 Potassium Chloride (KCl Premix 10meq) 100 ml @ 100 mls/hr Q1H IV Last administered on 01/22/17 11:52; Start 01/22/17 at 09:00; Stop 01/22/17 at 12:59; Status DC Ferrous Sulfate (Feosol) 325 mg DAILY PO Last administered on 01/22/17 14:00; Start 01/22/17 at 11:00 Folic Acid (Folic Acid) 1 mg DAILY PO Last administered on 01/22/17 14:00; Start 01/22/17 at 11:00 Cetirizine HCl (Zyrtec) 10 mg DAILY PO Last administered on 01/22/17 14:00; Start 01/22/17 at 11:00 Pantoprazole Sodium 40 mg 40 mg DAILY PO Last administered on 01/22/17 14:00; Start 01/22/17 at 11:00 Ceftriaxone Sodium/Sodium Chloride (Rocephin/Iv Sodium Chloride 0.9% 50ml) 50 ml @ 100 mls/hr Q24H IV Last administered on 01/22/17 10:10; Start 01/22/17 at 11:00 Albuterol/ Ipratropium (Duoneb) 3 ml RTQID NEB Last administered on 01/22/17 19 :31; Start 01/22/17 at 12:00 Lorazepam (Ativan) 0.5 mg PRN Q6HRS PRN PO ANXIETY / AGITATION; Start 01/22/17 at 17:30 Lorazepam (Ativan) 1 mg PRN Q6HRS PRN PO ANXIETY / AGITATION Last administered on 01/22/17 17:36; Start 01/22/17 at 17:30 Potassium Chloride 40 meq 40 meq 1X ONCE PO Last administered on 01/22/17 20: 34; Start 01/22/17 at 20:30; Stop 01/22/17 at 20:31; Status DC Sodium Chloride (Iv Sodium Chloride 0.9% 1000ml Bag) 1,000 ml @ 125 mls/hr Q8H IV Last administered on 01/23/17 00:36; Start 01/22/17 at 21:45 Active Scripts Active Reported Folic Acid 1 Mg Tablet 1 Tab PO DAILY Pantoprazole Sodium 40 Mg Tablet.dr 1 Tab PO DAILY Loratadine 10 Mg Tablet 1 Tab PO DAILY Losartan-Hctz 50-12.5 Mg Tab (Losartan/Hydrochlorothiazide) 1 Each Tablet 1 Tab PO DAILY Ferrous Sulfate 325 Mg Tablet 1 Tab PO DAILY Vitals/I & O Vital Sign - Last 24 Hours 01/22/17 01/22/17 01/22/17 01/22/17 09:00 10:00 11:00 11:26 Temp 98.7 98.7 Pulse 88 96 100 Resp 16 20 20 B/P 100/59 111/77 83/51 Pulse Ox 98 96 98 99 O2 Delivery Room Air Room Air Room Air Room Air 01/22/17 01/22/17 01/22/1701/22/17 12:00 12:00 13:00 14:00 Pulse 108 108 96 Resp 20 16 16 B/P 119/73 93/63 Pulse Ox 98 99 99 O2 Delivery Room Air Room Air Room Air Room Air 01/22/17 01/22/17 01/22/17 01/22/17 15:00 16:00 16:00 16:27 Temp 98.5 98.5 Pulse 102 92 Resp 16 20 B/P 92/56 93/58 Pulse Ox 97 98 87 O2 Delivery Room Air Room Air Room Air Room Air 01/22/17 01/22/17 01/22/17 01/22/17 17:00 18:00 19:32 19:45 Pulse 108 112 Resp 20 20 B/P 105/62 107/66 Pulse Ox 98 98 92 O2 Delivery Room Air Room Air Room Air Room Air 01/22/17 01/22/17 01/22/17 01/22/17 19:50 20:05 20:15 20:30 Temp 98.2 98.2 Pulse 106 108 110 110 Resp 16 18 18 18 B/P 74/48 83/52 78/54 102/58 Pulse Ox 98 98 98 88 O2 Delivery Room Air Room Air Room Air Room Air 01/22/17 01/22/17 01/22/17 01/22/17 20:45 21:15 21:30 21:45 Pulse 110 100 96 100 Resp 18 18 18 18 B/P 113/72 70/51 80/58 85/61 Pulse Ox 89 94 96 96 O2 Delivery Room Air Nasal Cannula Nasal Cannula Nasal Cannula O2 Flow Rate 2.0 2.0 2.0 01/22/17 01/22/17 01/22/17 01/22/17 22:00 22:15 22:30 22:45 Pulse 95 93 93 93 Resp 18 18 18 18 B/P 70/50 79/47 81/53 69/39 Pulse Ox 96 96 95 95 O2 Delivery Nasal Cannula Nasal Cannula Nasal Cannula Nasal Cannula O2 Flow Rate 2.0 2.0 2.0 2.0 01/22/17 01/23/17 01/23/17 01/23/17 23:00 00:00 00:00 01:00 Temp 98.6 98.6 Pulse 93 93 85 Resp 18 14 14 B/P 70/39 111/66 111/68 Pulse Ox 98 95 99 O2 Delivery Nasal Cannula Room Air Nasal Cannula Nasal Cannula O2 Flow Rate 2.0 2.0 2.0 01/23/17 01/23/17 01/23/17 01/23/17 02:00 03:00 04:00 04:05 Temp 98.7 98.7 Pulse 90 92 82 Resp 14 14 14 B/P 95/61 99/59 109/73 Pulse Ox 98 98 100 O2 Delivery Nasal Cannula Nasal Cannula Nasal Cannula Room Air O2 Flow Rate 2.0 2.0 2.0 01/23/17 01/23/17 05:00 06:00 Pulse 88 107 Resp 14 14 B/P 109/72 125/80 Pulse Ox 98 98 O2 Delivery Nasal Cannula Nasal Cannula O2 Flow Rate 2.0 2.0 Intake and Output 01/22/17 01/22/17 01/23/17 15:00 23:00 07:00 Intake Total 200 ml 2729 ml 2250 ml Output Total 2075 ml 925 ml Balance 200 ml 654 ml 1325 ml MANUELA ALCAZAR MD Jan 23, 2017 08:46
[2017-01-23] MEDS: IPRATRPIUM/ALBUTEROL 0.5/2.5MG 3 ML NEBU. NEB SCH ×4 (09:03→20:05)
[2017-01-23] MEDS: FERROUS SULFATE 325 MG TABLET. PO SCH (11:42)
[2017-01-23] MEDS: CEFTRIAXONE SODIUM 1 GM in IV NORMAL SALINE 50ML 50 ML IV SCH (11:42)
[2017-01-23] MEDS: FOLIC ACID 1 MG TABLET. PO SCH (11:42)
[2017-01-23] MEDS: PANTOPRAZOLE 40 MG TABLET.DR. PO SCH (11:42)
[2017-01-23] MEDS: CETIRIZINE HCL 10 MG TABLET. PO SCH (11:42)
--- NOTE | 2017-01-23 13:25 | ACF ---
Admission Forms Criteria MENTAL STATUS CHANGE Clinical Indications for Inpatient Care (Place 'X' for any and all applicable criteria): Ongoing inpatient care may be needed for ANY ONE of the following(1)(2)(3)(5)(6) : [X]I. Suspected serious etiology (eg, medical disorder, BILLET RECORDER event) of mental status change [ ]II. Danger to self or others not manageable at lower level of care [ ]III. Grave disability (eg, inability to perform self care necessary at lower level of care) [ ]IV. Agitation or inappropriate behavior interfering with care for primary condition (eg, attempting to discontinue lines or drains prematurely, unable to cooperate with respiratory care) [ ]V. Delirium [A] [D][E] as described by ANY ONE of the following(26): [ ]a) Delirium due to alcohol or sedative [F] withdrawal [ ]b) Delirium of uncertain etiology that has not responded to appropriate empiric treatment [ ]c) Delirium that prevents performance of a life-sustaining function (eg, feeding or hydrating oneself) [ ]. General contraindications and/or Inappropriate clinical situations for Observational Care in patients with Mental Status Change, when ANY ONE of the following is required: [ ]a) Prediction of prolongation of LOS based on ANY ONE of the following may be considered as a contraindication for observational care 2, 3, 4, 5, 6, 7, 8, 9, 10, 11 [ ]i) Age > 65 yrs. [ ]ii) Patient arriving by ambulance [ ]iii) Patient with high acuity [ ]iv) Patient requiring vital sign monitoring [ ]v) Patient on IV medication [ ]b) Systolic blood pressures 180mmHg 3,12 [ ]c) Patient with altered mental status including delirium and other alteration of consciousness, (3) [ ]d) Patient whose discharge disposition will be to a long-term home or rehabilitation home should not be managed in Emergency Department Observation Unit. CMS rule requires 3 days hospital stay before such placement.3,13 [ ]e) Patient with failure to thrive due to broad array of etiologies 3,16,17 [ ]f) Inability to ambulate 3,14 Extended stay beyond goal length of stay for the primary condition may be needed until ALL of the following are present(3)(5): [ ]a) Underlying medical etiology of mental status change is absent, or has been established and adequately treated [ ]b) Danger to self or others is absent or manageable at lower level of care. [ ]c) Behavior crisis management, including physical or chemical restraints, is not required or available at lower level of car [ ]d) Substance or alcohol withdrawal is absent or manageable at lower level of care. [ ]e) Behavioral symptoms (eg, agitation, somnolence, inappropriate behavior) are absent, or are manageable at lower level of care. The original [facility] content created by [facility] has been revised. The portions of the content which have been revised are identified through the use of italic text or in bold, and [facility] has neither reviewed nor approved the modified material. All other unmodified content is copyright [facility]. Please see references footnoted in the original [facility] edition 2016 Admission Criteria Met?: Yes CHAPITO ROQUE Jan 23, 2017 13:24
[2017-01-23] MEDS: LORAZEPAM 1 MG TABLET. PO PRN (18:26)
[2017-01-24] MEDS: LORAZEPAM 1 MG TABLET. PO PRN ×4 (00:41→21:15)
[2017-01-24 03:00] VITALS: BP 105/66
[2017-01-24 04:23] LABS: HEMATOCRIT 24.9 % (39.0-53.0); HEMOGLOBIN 8.4 g/dL (13.0-17.5); RED BLOOD COUNT 2.36 x10^6/uL (4.30-5.70); RED CELL DISTRIBUTION WIDTH 15.2 % (11.5-14.5)
[2017-01-24 04:39] LABS: CALCIUM 7.7 mg/dL (8.5-10.1); CREATININE 0.7 mg/dL (0.7-1.3); GFR 113.5; MAGNESIUM 1.7 mg/dL (1.8-2.4)
[2017-01-24 07:00] VITALS: BP 114/74
[2017-01-24] MEDS: IPRATRPIUM/ALBUTEROL 0.5/2.5MG 3 ML NEBU. NEB SCH ×4 (07:07→20:12)
[2017-01-24] MEDS: PANTOPRAZOLE 40 MG TABLET.DR. PO SCH (09:18)
[2017-01-24] MEDS: FOLIC ACID 1 MG TABLET. PO SCH (09:18)
[2017-01-24] MEDS: FERROUS SULFATE 325 MG TABLET. PO SCH (09:18)
[2017-01-24] MEDS: CETIRIZINE HCL 10 MG TABLET. PO SCH (09:18)
--- NOTE | 2017-01-24 10:07 | PDOC ---
PROGRESS NOTES Subjective Subjective Patient reports some palpitations and shortness of air at present, denies CP. Objective Objective Vital Signs Date Time Temp Pulse Resp B/P Pulse Ox O2 Delivery O2 Flow Rate FiO2 01/24/17 08:06 97 Nasal Cannula 3.0 01/24/17 07:00 97.5 105 18 114/74 97.5 Intake and Output 01/24/17 07:00 Intake Total 1350 ml Output Total 1870 ml Balance -520 ml Intake Oral 1350 ml Output Urine Total 1870 ml Physical Exam Abdomen: Normal bowel sounds, Soft, No tenderness Heart: Regular rate (tachycardic) Extremities: No edema General: Alert, Oriented X3, No acute distress Lungs: Other (BS decreased throughout but CTA) Assessment Assessment Problems Medical Problems: (1) Alcohol abuse Status: Acute (2) Encephalopathy Status: Acute (3) Heart failure Status: Acute (4) Hypokalemia Status: Acute Plan Plan of Care 1. Sepsis - hypotension has resolved, patient is afebrile. Urine and blood cultures negative to date, continue Rocephin for now. 2. hypoxia and tachycardia - persist. Check CT angiogram, consult Cardiology to help with further evaluation. Suspect a little fluid overload now with BUN very low. Will give Lasix x1 IV and follow. 3. anemia - Hgb is lower today, patient still without s/s of acute blood loss. Continue po Fe, check lab in AM. 4. urinary retention - discontinue Burnette today, check PVR's. 5. low Magnesium - replace po and follow. 6. ETOH abuse with Hep C - stable. Continue Xanax prn anxiety. Comment Review of Relevant I have reviewed the following items christie (where applicable) has been applied. Labs Laboratory Tests Test 01/22/17 18:15 01/23/17 03:55 01/24/17 04:00 Potassium Level 3.5mmol/L (3.5-5.1) 3.9mmol/L (3.5-5.1) 4.0mmol/L (3.5-5.1) Magnesium Level 2.5mg/dL (1.8-2.4) 2.4mg/dL (1.8-2.4) 1.7mg/dL (1.8-2.4) White Blood Count 16.5x10^3/uL (4.0-11.0) 10.0x10^3/uL (4.0-11.0) Red Blood Count 2.58x10^6/uL (4.30-5.70) 2.36x10^6/uL (4.30-5.70) Hemoglobin 9.0g/dL (13.0-17.5) 8.4g/dL (13.0-17.5) Hematocrit 27.5% (39.0-53.0) 24.9% (39.0-53.0) Mean Corpuscular Volume 107fL (79-100) 106fL (79-100) Mean Corpuscular Hemoglobin 35pg (25-35) 36pg (25-35) Mean Corpuscular Hemoglobin Concent 33g/dL (31-37) 34g/dL (31-37) Red Cell Distribution Width 15.1% (11.5-14.5) 15.2% (11.5-14.5) Platelet Count 192x10^3/uL (140-400) 156x10^3/uL (140-400) Neutrophils (%) (Auto) 72% (31-73) Lymphocytes (%) (Auto) 17% (24-48) Monocytes (%) (Auto) 9% (0-9) Eosinophils (%) (Auto) 2% (0-3) Basophils (%) (Auto) 1% (0-3) Neutrophils # (Auto) 11.9x10^3uL (1.8-7.7) Lymphocytes # (Auto) 2.7x10^3/uL (1.0-4.8) Monocytes # (Auto) 1.5x10^3/uL (0.0-1.1) Eosinophils # (Auto) 0.3x10^3/uL (0.0-0.7) Basophils # (Auto) 0.2x10^3/uL (0.0-0.2) Sodium Level 137mmol/L (136-145) 133mmol/L (136-145) Chloride Level 106mmol/L (98-107) 101mmol/L (98-107) Carbon Dioxide Level 23mmol/L (21-32) 22mmol/L (21-32) Anion Gap 8 (6-14) 10 (6-14) Blood Urea Nitrogen 7mg/dL (8-26) 4mg/dL (8-26) Creatinine 0.7mg/dL (0.7-1.3) 0.7mg/dL (0.7-1.3) Estimated GFR (Cockcroft-Gault) 113.5 113.5 BUN/Creatinine Ratio 10 (6-20) Glucose Level 131mg/dL (70-99) 101mg/dL (70-99) Calcium Level 7.5mg/dL (8.5-10.1) 7.7mg/dL (8.5-10.1) Total Bilirubin 0.8mg/dL (0.2-1.0) Aspartate Amino Transf (AST/SGOT) 40U/L (15-37) Alanine Aminotransferase (ALT/SGPT) 18U/L (16-63) Alkaline Phosphatase 240U/L (46-116) Total Protein 5.0g/dL (6.4-8.2) Albumin 2.0g/dL (3.4-5.0) Albumin/Globulin Ratio 0.7 (1.0-1.7) Laboratory Tests Test 01/24/17 04:00 White Blood Count 10.0x10^3/uL (4.0-11.0) Red Blood Count 2.36x10^6/uL (4.30-5.70) Hemoglobin 8.4g/dL (13.0-17.5) Hematocrit 24.9% (39.0-53.0) Mean Corpuscular Volume 106fL (79-100) Mean Corpuscular Hemoglobin 36pg (25-35) Mean Corpuscular Hemoglobin Concent 34g/dL (31-37) Red Cell Distribution Width 15.2% (11.5-14.5) Platelet Count 156x10^3/uL (140-400) Sodium Level 133mmol/L (136-145) Potassium Level 4.0mmol/L (3.5-5.1) Chloride Level 101mmol/L (98-107) Carbon Dioxide Level 22mmol/L (21-32) Anion Gap 10 (6-14) Blood Urea Nitrogen 4mg/dL (8-26) Creatinine 0.7mg/dL (0.7-1.3) Estimated GFR (Cockcroft-Gault) 113.5 Glucose Level 101mg/dL (70-99) Calcium Level 7.7mg/dL (8.5-10.1) Magnesium Level 1.7mg/dL (1.8-2.4) Microbiology 01/21/17 Blood Culture - Preliminary, Resulted NO GROWTH AFTER 2 DAYS 01/22/17 Urine Culture - Preliminary, Resulted 01/22/17 Urine Culture Result 1 (FLACO) - Preliminary, Resulted Medications Current Medications Ondansetron HCl 4 mg 4 mg 1X ONCE IV Last administered on 01/21/17 16:29; Start 01/21/17 at 16:30; Stop 01/21/17 at 16:31; Status DC Sodium Chloride 1,000 ml @ 1,000 mls/hr Q1H IV Last administered on 01/21/17 16:29; Start 01/21/17 at 16:20; Stop 01/21/17 at 17:19; Status DC Potassium Chloride/Sodium Chloride (KCl 40 Meq-NS 1,000 ml Iv Soln) 1,000 ml @ 75 mls/hr 1X ONCE IV Last administered on 01/21/17 17:15; Start 01/21/17 at 17: 15; Stop 01/22/17 at 06:34; Status DC Ondansetron HCl 4 mg 4 mg PRN Q8HRS PRN IV NAUSEA/VOMITING; Start 01/21/17 at 17 :45; Stop 01/22/17 at 17:44; Status DC Sodium Chloride 1,000 ml @ 125 mls/hr Q8H IV Last administered on 01/22/17 14: 00; Start 01/21/17 at 18:00; Stop 01/22/17 at 17:59; Status DC Multivitamins 10 ml/Folic Acid 1 mg/Thiamine HCl 100 mg/Dextrose/ Sodium Chloride 1,011.2 ml @ 100 mls/ hr DAILY IV Last administered on 01/21/17 22:10 ; Start 01/21/17 at 22:00; Stop 01/23/17 at 08:31; Status DC Norepinephrine Bitartrate 8 mg/ Sodium Chloride 258 ml @ 0 mls/hr CONT PRN IV SEE I/O RECORD Last administered on 01/23/17 06:08; Start 01/21/17 at 20:30 Potassium Chloride (KCl Premix 10meq) 100 ml @ 100 mls/hr Q1H IV Last administered on 01/22/17 01:56; Start 01/21/17 at 21:00; Stop 01/22/17 at 00:59; Status DC Haloperidol Lactate (Haldol) 1 mg PRN Q2HR PRN IVP MILD AGITATION Last administered on 01/22/17 00:00; Start 01/21/17 at 20:30 Haloperidol Lactate 2 mg 2 mg PRN Q2HR PRN IVP MODERATE AGITATION Last administered on 01/22/17 17:40; Start 01/21/17 at 21:00 Potassium Chloride 100 ml @ 100 mls/hr PRN Q1HR PRN IV SEE COMMENTS; Start 01/22/17 at 08:15 Potassium Chloride 100 ml @ 100 mls/hr PRN Q1HR PRN IV SEE COMMENTS; Start 01/22/17 at 08:15 Potassium Chloride 100 ml @ 100 mls/hr PRN Q1HR PRN IV SEE COMMENTS; Start 01/22/17 at 08:15 Magnesium Sulfate/ Dextrose 100 ml @ 50 mls/hr PRN DAILY PRN IV SEE COMMENTS Last administered on 01/22/17 08:57; Start 01/22/17 at 09:00 Potassium Chloride (KCl Premix 10meq) 100 ml @ 100 mls/hr Q1H IV Last administered on 01/22/17 11:52; Start 01/22/17 at 09:00; Stop 01/22/17 at 12:59; Status DC Ferrous Sulfate (Feosol) 325 mg DAILY PO Last administered on 01/24/17 09:18; Start 01/22/17 at 11:00 Folic Acid (Folic Acid) 1 mg DAILY PO Last administered on 01/24/17 09:18; Start 01/22/17 at 11:00 Cetirizine HCl (Zyrtec) 10 mg DAILY PO Last administered on 01/24/17 09:18; Start 01/22/17 at 11:00 Pantoprazole Sodium 40 mg 40 mg DAILY PO Last administered on 01/24/17 09:18; Start 01/22/17 at 11:00 Ceftriaxone Sodium/Sodium Chloride (Rocephin/Iv Sodium Chloride 0.9% 50ml) 50 ml @ 100 mls/hr Q24H IV Last administered on 01/23/17 11:42; Start 01/22/17 at 11:00 Albuterol/ Ipratropium (Duoneb) 3 ml RTQID NEB Last administered on 01/24/17 07 :07; Start 01/22/17 at 12:00 Lorazepam (Ativan) 0.5 mg PRN Q6HRS PRN PO ANXIETY / AGITATION; Start 01/22/17 at 17:30 Lorazepam (Ativan) 1 mg PRN Q6HRS PRN PO ANXIETY / AGITATION Last administered on 01/24/17 06:47; Start 01/22/17 at 17:30 Potassium Chloride 40 meq 40 meq 1X ONCE PO Last administered on 01/22/17 20: 34; Start 01/22/17 at 20:30; Stop 01/22/17 at 20:31; Status DC Sodium Chloride (Iv Sodium Chloride 0.9% 1000ml Bag) 1,000 ml @ 125 mls/hr Q8H IV Last administered on 01/23/17 00:36; Start 01/22/17 at 21:45; Stop 01/23/17 at 08:31; Status DC Active Scripts Active Reported Folic Acid 1 Mg Tablet 1 Tab PO DAILY Pantoprazole Sodium 40 Mg Tablet.dr 1 Tab PO DAILY Loratadine 10 Mg Tablet 1 Tab PO DAILY Losartan-Hctz 50-12.5 Mg Tab (Losartan/Hydrochlorothiazide) 1 Each Tablet 1 Tab PO DAILY Ferrous Sulfate 325 Mg Tablet 1 Tab PO DAILY Vitals/I & O Vital Sign - Last 24 Hours 01/23/17 01/23/17 01/23/17 01/23/17 11:00 12:00 12:00 13:00 Temp 98.6 98.6 Pulse 116 123 B/P 90/68 114/69 Pulse Ox 90 96 96 O2 Delivery Room Air Room Air Room Air Room Air 01/23/17 01/23/17 01/23/17 01/23/17 16:00 16:00 17:01 17:30 Temp 99.5 99.5 Pulse 120 136 Resp 25 B/P 135/67 131/85 Pulse Ox 96 92 O2 Delivery Room Air Room Air Room Air Room Air 01/23/17 01/23/17 01/23/17 01/23/17 19:00 20:00 20:07 22:48 Temp 101.1 99.6 101.1 99.6 Pulse 122 114 Resp 20 21 B/P 111/71 116/68 Pulse Ox 96 97 95 O2 Delivery Room Air Nasal Cannula Room Air Room Air O2 Flow Rate 2.0 01/24/17 01/24/17 01/24/17 03:00 07:00 08:06 Temp 98.9 97.5 98.9 97.5 Pulse 66 105 Resp 19 18 B/P 105/66 114/74 Pulse Ox 100 99 97 O2 Delivery Room Air Nasal Cannula Nasal Cannula O2 Flow Rate 2.0 3.0 Intake and Output 01/23/17 01/23/17 01/24/17 15:00 23:00 07:00 Intake Total 1100 ml 250 ml Output Total 600 ml 120 ml 1150 ml Balance 500 ml 130 ml -1150 ml MANUELA ALCAZAR MD Jan 24, 2017 10:07
[2017-01-24] MEDS ORDERED: FUROSEMIDE 20 MG/2 ML VIAL. IVP ONE (10:15)
[2017-01-24 11:03] VITALS: BP 128/87
[2017-01-24] MEDS ORDERED: CONTRAST GIVEN MC PRN (11:15)
[2017-01-24] MEDS ORDERED: IOHEXOL 300 MG/ML 75 ML VIAL IV ONE (11:15)
--- NOTE | 2017-01-24 11:18 | PDOC2 ---
LEE ALLEN INTRANET DEVELOPER 01/24/17 1118: CARDIAC CONSULT DATE OF CONSULT Date of Consult DATE: 01/24/17 TIME: 11:17 REASON FOR CONSULT Reason for Consult: Tachycardia REFERRING PHYSICIAN Referring Physician: Dr. Fuller SOURCE Source: Chart review, Patient HISTORY OF PRESENT ILLNESS HISTORY OF PRESENT ILLNESS This is a 66 yo male who presented with complaints of ongoing nausea, vomiting, diarrhea, and weakness over the last week. Patient has a history of alcoholism consuming 1/2 pint of bourbon daily. Last drink 9 days ago as patient was "quitting". No previous experience of withdrawal when abstaining from alcohol. Patient treated with IV fluids for sepsis with lactic acidosis and hypotension. Has remained tachycardia over course of hospitalization, which prompted this consult. Patient denies any chest pain, palpitations, dizziness, or diaphoresis. Does reports mild SOA and has a history of COPD. Jorge any orthopnea or LE edema. Tremors upon admission; have improved. PAST MEDICAL HISTORY Cardiovascular: HTN Pulmonary: COPD GI: No pertinent hx Heme/Onc: Anemia NOS Hepatobiliary: Hep A/B/C (C) Psych: Anxiety, Addictions (ETOH), Depression Rheumatologic: No pertinent hx Infectious disease: No pertinent hx ENT: No pertinent hx Renal/: No pertinent hx Endocrine: No pertinent hx Dermatology: Eczema PAST SURGICAL HISTORY Past Surgical History: Tonsillectomy FAMILY HISTORY Family History: Other (no pertinent hx) SOCIAL HISTORY Smoke: 1 pack per day ALCOHOL: heavy Drugs: Marijuana Lives: with Family ALLERGIES ALLERGIES: Coded Allergies: No Known Drug Allergies (Unverified , 01/22/17) ROS Review of System 14 point ROS conducted with pertinent positives noted above in HPI. PHYSICAL EXAM General: Alert, Oriented X3, Cooperative, No acute distress HEENT: Atraumatic, Mucous membr. moist/pink Lungs: Clear to auscultation, Other (diminished bases ) Heart: Normal S1, Normal S2, Other (tele ST) Abdomen: Soft, No tenderness Extremities: No edema, Normal pulses Skin: No breakdown, No significant lesion Neuro: Normal speech, Sensation intact Psych/Mental Status: Mental status NL, Other (tearful) MUSCULOSKELETAL: Osteoarthritic changes both hands VITALS VITALS Vital Signs Date Time Temp Pulse Resp B/P Pulse Ox O2 Delivery O2 Flow Rate FiO2 01/24/17 11:03 97.7 115 18 128/87 94 Nasal Cannula 2.0 97.7 LABS Lab: Laboratory Tests Test 01/24/17 04:00 White Blood Count 10.0x10^3/uL (4.0-11.0) Red Blood Count 2.36x10^6/uL (4.30-5.70) Hemoglobin 8.4g/dL (13.0-17.5) Hematocrit 24.9% (39.0-53.0) Mean Corpuscular Volume 106fL (79-100) Mean Corpuscular Hemoglobin 36pg (25-35) Mean Corpuscular Hemoglobin Concent 34g/dL (31-37) Red Cell Distribution Width 15.2% (11.5-14.5) Platelet Count 156x10^3/uL (140-400) Sodium Level 133mmol/L (136-145) Potassium Level 4.0mmol/L (3.5-5.1) Chloride Level 101mmol/L (98-107) Carbon Dioxide Level 22mmol/L (21-32) Anion Gap 10 (6-14) Blood Urea Nitrogen 4mg/dL (8-26) Creatinine 0.7mg/dL (0.7-1.3) Estimated GFR (Cockcroft-Gault) 113.5 Glucose Level 101mg/dL (70-99) Calcium Level 7.7mg/dL (8.5-10.1) Magnesium Level 1.7mg/dL (1.8-2.4) ECHOCARDIOGRAM ECHOCARDIOGRAM <Conclusion> The left ventricle is normal size. The left ventricular systolic function is normal and the ejection fraction is within normal range. The Ejection Fraction is 55-60%. There is mild concentric left ventricular hypertrophy. There is no significant aortic valvular stenosis. Doppler and Color Flow revealed no significant aortic regurgitation. Doppler and Color-flow revealed mild mitral regurgitation. Doppler and Color Flow revealed trace tricuspid regurgitation. The PA pressure was estimated at 30 mmHg. The ascending aorta is mildly dilated at 3.8 cm. DATE: 01/22/17 1302 ASSESSMENT/PLAN ASSESSMENT/PLAN 1. Tachycardia, sinus multifactorial. Likely reactive to acute infectious process and possible ETOH withdrawal BP low-normotensive. No wheezing present. Could add low-dose BB for rate control if tachycardia does not improve TSH WNL continue supportive care 2. Dyspnea Mild NT Pro BNP elevation initial CXR without significant fluid accumulation echo with preserved LV function. No significant valvular abnormalities. CTA pending Received Lasix IV 20mg x1 this morning. Will re-assess need for further diuresis in am 3. Leukocytosis with lactic acidosis and hypotension; improved being treated with IV antibiotics 4. UTI ? prostatitis BC negative so far per PCP 5. ETOH abuse with hep C ? withdrawal. nausea/vomiting resolved. management per PCP 6. COPD per PCP 7. Electrolyte abnormalities replace. Monitor lytes 8. Substance use UDS + marijuana Problems: ZHENG RICHARD MD 01/24/17 1437: CARDIAC CONSULT ALLERGIES ALLERGIES: Coded Allergies: No Known Drug Allergies (Unverified , 01/22/17) ASSESSMENT/PLAN ASSESSMENT/PLAN Patient seen and examined. Agree with SERVICE SUPERVISOR's assessment and plan. Sinus tachycardia physiologic. No other significant arrhythmias noted. 2-D echo showed normal LV function without any significant wall motion abnormalities. Mild acute on chronic diastolic heart failure better compensated after single dose of Lasix. Monitor for alcohol withdrawal. Thank you for your consultation. Problems: LEE ALLEN APRN Jan 24, 2017 11:18 ZHENG RICHARD MD Jan 24, 2017 14:37
[2017-01-24] MEDS: MAGNESIUM CHLORIDE ER 64 MG TABLET.ER PO SCH ×2 (12:40)
[2017-01-24] MEDS: CEFTRIAXONE SODIUM 1 GM in IV NORMAL SALINE 50ML 50 ML IV SCH (12:40)
--- NOTE | 2017-01-24 14:01 | RAD ---
CT pulmonary angiogram with contrast History: Hypoxia and tachycardia. Comparison: None. Technique: Helical CT angiogram of the chest with attention to the pulmonary arteries was performed after the administration of intravenous contrast, 75 mL Omnipaque 300. Axial 2-D reconstructions were obtained. Coronal 3-D MIPS were also obtained. One or more of the following individualized dose reduction techniques were utilized for the study: Automated exposure control Adjustment of mA and/or kV according to patient's size Use of iterative reconstruction technique. Any stenosis calculations were made according to NASCET methodology. Findings: Pulmonary arteries are adequately opacified. There is no evidence of pulmonary embolism. Visualized thyroid is symmetric. Trachea and mainstem bronchi appear patent. Borderline right hilar lymph node measures 1.3 cm in short axis. No mediastinal lymphadenopathy is seen. The thoracic aorta is without evidence of dissection. Mild thoracic aortic atherosclerosis is present. Coronary artery calcifications are seen. Small bilateral pleural effusions are present. Mild-moderate emphysematous changes of lungs are seen. The right apex demonstrates irregular consolidation which demonstrates some calcification and tethering to the apical pleura. Maximum axial dimension of the nodular component is 2.0 cm. Geographic areas of groundglass opacity with some septal thickening can be seen involving the left upper lobe and superior segment of left lower lobe. There is a soft tissue nodule, nonspecific, measuring 7 mm in right middle lobe (series 3 image 93). Scattered atelectasis is seen in both lung bases. There is evidence of septal thickening in the lung bases, suggesting interstitial edema. The celiac axis demonstrates approximately 30-40% diameter stenosis at the ostium. The ostium and proximal aspect of superior mesenteric artery demonstrates approximately 75% luminal diameter stenosis. Fatty liver disease is seen. Cholelithiasis is present. Old granulomatous disease of the liver and spleen is seen. S-shaped degenerative scoliosis is seen involving the thoracic spine. Impression: 1. No evidence pulmonary embolism. 2. Small bilateral pleural effusions. Evidence of septal thickening as well as scattered areas of groundglass opacity. Findings could represent mild pulmonary edema. Alternatively, groundglass opacity could represent nonspecific infectious or inflammatory process. 3. Emphysema. 4. Borderline right hilar lymph node, possibly reactive. 5. Irregular consolidation at the right apex. Irregular pulmonary nodule versus pleural and parenchymal scarring are possible. Close interval follow-up CT could be performed in 3 months to suspect for change. 6. 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 30-40% luminal diameter stenosis at the ostium of the celiac axis.
[2017-01-24 15:00] VITALS: BP 125/84
[2017-01-24 19:00] VITALS: BP 104/73
[2017-01-24 23:00] VITALS: BP 98/66
[2017-01-25 03:00] VITALS: BP 95/58
[2017-01-25] MEDS: LORAZEPAM 1 MG TABLET. PO PRN ×2 (04:15→20:34)
[2017-01-25 06:26] LABS: HEMATOCRIT 26.8 % (39.0-53.0); HEMOGLOBIN 8.9 g/dL (13.0-17.5); RED BLOOD COUNT 2.52 x10^6/uL (4.30-5.70); RED CELL DISTRIBUTION WIDTH 15.6 % (11.5-14.5); WHITE BLOOD COUNT 8.3 x10^3/uL (4.0-11.0)
[2017-01-25 06:45] LABS: CALCIUM 7.9 mg/dL (8.5-10.1); CREATININE 0.8 mg/dL (0.7-1.3); GFR 97.3; POTASSIUM 3.9 mmol/L (3.5-5.1)
[2017-01-25 07:00] VITALS: BP 79/52
[2017-01-25] MEDS: IPRATRPIUM/ALBUTEROL 0.5/2.5MG 3 ML NEBU. NEB SCH ×4 (07:40→20:00)
[2017-01-25] MEDS: MAGNESIUM CHLORIDE ER 64 MG TABLET.ER PO SCH ×2 (08:25)
[2017-01-25] MEDS: PANTOPRAZOLE 40 MG TABLET.DR. PO SCH (08:26)
[2017-01-25] MEDS: CETIRIZINE HCL 10 MG TABLET. PO SCH (08:26)
[2017-01-25] MEDS: FERROUS SULFATE 325 MG TABLET. PO SCH (08:26)
[2017-01-25] MEDS: FOLIC ACID 1 MG TABLET. PO SCH (08:26)
--- NOTE | 2017-01-25 09:30 | PDOC ---
PROGRESS NOTES Subjective Subjective Patient denies abdominal pain with eating. States he feels a little better. Denies difficulty urinating after Burnette removed. Objective Objective Vital Signs Date Time Temp Pulse Resp B/P Pulse Ox O2 Delivery O2 Flow Rate FiO2 01/25/17 07:43 95 Room Air 01/25/17 07:00 97.7 97 18 79/52 2.0 97.7 Intake and Output 01/25/17 07:00 Intake Total 1340 ml Output Total 1200 ml Balance 140 ml Intake Oral 1340 ml Output Urine Total 1200 ml # Voids 3 # Bowel Movements 1 Physical Exam Abdomen: Normal bowel sounds, Soft, No tenderness Heart: Regular rate Extremities: No edema General: Alert, Oriented X3, No acute distress Lungs: Other (BS decreased throughout, few crackles in bases) Assessment Assessment Problems Medical Problems: (1) Alcohol abuse Status: Acute (2) Encephalopathy Status: Acute (3) Heart failure Status: Acute (4) Hypokalemia Status: Acute Plan Plan of Care 1. Sepsis - blood and urine cultures negative to date, patient continues to have low, intermittent fevers and some mild hypotension at times. Will consult ID to help with further management. 2. 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 Patient denies symptoms. Will consult Vascular Surgery for advice on further tx. 3. fluids - suspect he is still a little overloaded. Had some diuresis with Lasix yesterday. Mildly low BP still, will hold on Lasix at this time. Patient appears to have good renal function so should be able to diuresis naturally. No significant PVR on one check noted on chart. 4. anemia - some improvement on lab with diuresis. Will check B12, continue po Fe. 5. COPD - patient is not hypoxic on RA now. Some pleural effusions present on CT. Patient advised out of bed. Continue nebs as needed. Comment Review of Relevant I have reviewed the following items christie (where applicable) has been applied. Labs Laboratory Tests Test 01/24/17 04:00 01/25/17 05:00 White Blood Count 10.0x10^3/uL (4.0-11.0) 8.3x10^3/uL (4.0-11.0) Red Blood Count 2.36x10^6/uL (4.30-5.70) 2.52x10^6/uL (4.30-5.70) Hemoglobin 8.4g/dL (13.0-17.5) 8.9g/dL (13.0-17.5) Hematocrit 24.9% (39.0-53.0) 26.8% (39.0-53.0) Mean Corpuscular Volume 106fL (79-100) 107fL (79-100) Mean Corpuscular Hemoglobin 36pg (25-35) 36pg (25-35) Mean Corpuscular Hemoglobin Concent 34g/dL (31-37) 33g/dL (31-37) Red Cell Distribution Width 15.2% (11.5-14.5) 15.6% (11.5-14.5) Platelet Count 156x10^3/uL (140-400) 189x10^3/uL (140-400) Sodium Level 133mmol/L (136-145) 133mmol/L (136-145) Potassium Level 4.0mmol/L (3.5-5.1) 3.9mmol/L (3.5-5.1) Chloride Level 101mmol/L (98-107) 100mmol/L (98-107) Carbon Dioxide Level 22mmol/L (21-32) 25mmol/L (21-32) Anion Gap 10 (6-14) 8 (6-14) Blood Urea Nitrogen 4mg/dL (8-26) 4mg/dL (8-26) Creatinine 0.7mg/dL (0.7-1.3) 0.8mg/dL (0.7-1.3) Estimated GFR (Cockcroft-Gault) 113.5 97.3 Glucose Level 101mg/dL (70-99) 84mg/dL (70-99) Calcium Level 7.7mg/dL (8.5-10.1) 7.9mg/dL (8.5-10.1) Magnesium Level 1.7mg/dL (1.8-2.4) Laboratory Tests Test 01/25/17 05:00 White Blood Count 8.3x10^3/uL (4.0-11.0) Red Blood Count 2.52x10^6/uL (4.30-5.70) Hemoglobin 8.9g/dL (13.0-17.5) Hematocrit 26.8% (39.0-53.0) Mean Corpuscular Volume 107fL (79-100) Mean Corpuscular Hemoglobin 36pg (25-35) Mean Corpuscular Hemoglobin Concent 33g/dL (31-37) Red Cell Distribution Width 15.6% (11.5-14.5) Platelet Count 189x10^3/uL (140-400) Sodium Level 133mmol/L (136-145) Potassium Level 3.9mmol/L (3.5-5.1) Chloride Level 100mmol/L (98-107) Carbon Dioxide Level 25mmol/L (21-32) Anion Gap 8 (6-14) Blood Urea Nitrogen 4mg/dL (8-26) Creatinine 0.8mg/dL (0.7-1.3) Estimated GFR (Cockcroft-Gault) 97.3 Glucose Level 84mg/dL (70-99) Calcium Level 7.9mg/dL (8.5-10.1) Microbiology 01/21/17 Blood Culture - Preliminary, Resulted NO GROWTH AFTER 3 DAYS 01/22/17 Urine Culture - Final, Complete 01/22/17 Urine Culture Result 1 (FLACO) - Final, Complete Medications Current Medications Ondansetron HCl 4 mg 4 mg 1X ONCE IV Last administered on 01/21/17 16:29; Start 01/21/17 at 16:30; Stop 01/21/17 at 16:31; Status DC Sodium Chloride 1,000 ml @ 1,000 mls/hr Q1H IV Last administered on 01/21/17 16:29; Start 01/21/17 at 16:20; Stop 01/21/17 at 17:19; Status DC Potassium Chloride/Sodium Chloride (KCl 40 Meq-NS 1,000 ml Iv Soln) 1,000 ml @ 75 mls/hr 1X ONCE IV Last administered on 01/21/17 17:15; Start 01/21/17 at 17: 15; Stop 01/22/17 at 06:34; Status DC Ondansetron HCl 4 mg 4 mg PRN Q8HRS PRN IV NAUSEA/VOMITING; Start 01/21/17 at 17 :45; Stop 01/22/17 at 17:44; Status DC Sodium Chloride 1,000 ml @ 125 mls/hr Q8H IV Last administered on 01/22/17 14: 00; Start 01/21/17 at 18:00; Stop 01/22/17 at 17:59; Status DC Multivitamins 10 ml/Folic Acid 1 mg/Thiamine HCl 100 mg/Dextrose/ Sodium Chloride 1,011.2 ml @ 100 mls/ hr DAILY IV Last administered on 01/21/17 22:10 ; Start 01/21/17 at 22:00; Stop 01/23/17 at 08:31; Status DC Norepinephrine Bitartrate 8 mg/ Sodium Chloride 258 ml @ 0 mls/hr CONT PRN IV SEE I/O RECORD Last administered on 01/23/17 06:08; Start 01/21/17 at 20:30; Stop 01/24/17 at 11:06; Status DC Potassium Chloride (KCl Premix 10meq) 100 ml @ 100 mls/hr Q1H IV Last administered on 01/22/17 01:56; Start 01/21/17 at 21:00; Stop 01/22/17 at 00:59; Status DC Haloperidol Lactate (Haldol) 1 mg PRN Q2HR PRN IVP MILD AGITATION Last administered on 01/22/17 00:00; Start 01/21/17 at 20:30 Haloperidol Lactate 2 mg 2 mg PRN Q2HR PRN IVP MODERATE AGITATION Last administered on 01/22/17 17:40; Start 01/21/17 at 21:00 Potassium Chloride 100 ml @ 100 mls/hr PRN Q1HR PRN IV SEE COMMENTS; Start 01/22/17 at 08:15 Potassium Chloride 100 ml @ 100 mls/hr PRN Q1HR PRN IV SEE COMMENTS; Start 01/22/17 at 08:15 Potassium Chloride 100 ml @ 100 mls/hr PRN Q1HR PRN IV SEE COMMENTS; Start 01/22/17 at 08:15 Magnesium Sulfate/ Dextrose 100 ml @ 50 mls/hr PRN DAILY PRN IV SEE COMMENTS Last administered on 01/22/17 08:57; Start 01/22/17 at 09:00 Potassium Chloride (KCl Premix 10meq) 100 ml @ 100 mls/hr Q1H IV Last administered on 01/22/17 11:52; Start 01/22/17 at 09:00; Stop 01/22/17 at 12:59; Status DC Ferrous Sulfate (Feosol) 325 mg DAILY PO Last administered on 01/25/17 08:26; Start 01/22/17 at 11:00 Folic Acid (Folic Acid) 1 mg DAILY PO Last administered on 01/25/17 08:26; Start 01/22/17 at 11:00 Cetirizine HCl (Zyrtec) 10 mg DAILY PO Last administered on 01/25/17 08:26; Start 01/22/17 at 11:00 Pantoprazole Sodium 40 mg 40 mg DAILY PO Last administered on 01/25/17 08:26; Start 01/22/17 at 11:00 Ceftriaxone Sodium/Sodium Chloride (Rocephin/Iv Sodium Chloride 0.9% 50ml) 50 ml @ 100 mls/hr Q24H IV Last administered on 01/24/17 12:40; Start 01/22/17 at 11:00 Albuterol/ Ipratropium (Duoneb) 3 ml RTQID NEB Last administered on 01/25/17 07 :40; Start 01/22/17 at 12:00 Lorazepam (Ativan) 0.5 mg PRN Q6HRS PRN PO ANXIETY / AGITATION; Start 01/22/17 at 17:30 Lorazepam (Ativan) 1 mg PRN Q6HRS PRN PO ANXIETY / AGITATION Last administered on 01/25/17 04:15; Start 01/22/17 at 17:30 Potassium Chloride 40 meq 40 meq 1X ONCE PO Last administered on 01/22/17 20: 34; Start 01/22/17 at 20:30; Stop 01/22/17 at 20:31; Status DC Sodium Chloride (Iv Sodium Chloride 0.9% 1000ml Bag) 1,000 ml @ 125 mls/hr Q8H IV Last administered on 01/23/17 00:36; Start 01/22/17 at 21:45; Stop 01/23/17 at 08:31; Status DC Magnesium Chloride (Mag Delay) 64 mg DAILY PO Last administered on 01/25/17 08: 25; Start 01/24/17 at 10:30 Furosemide (Lasix) 20 mg 1X ONCE IVP Last administered on 01/24/17 12:40; Start 01/24/17 at 10:15; Stop 01/24/17 at 10:35; Status DC Iohexol (Omnipaque 300 Mg/ml) 75 ml 1X ONCE IV Last administered on 01/24/17t 11:58; Start 01/24/17 at 11:15; Stop 01/24/17 at 11:16; Status DC Info (Do NOT chart on this entry -- for MONITORING) 1 each PRN DAILY PRN MC SEE COMMENTS; Start 01/24/17 at 11:15; Stop 01/26/17 at 11:14 Active Scripts Active Reported Folic Acid 1 Mg Tablet 1 Tab PO DAILY Pantoprazole Sodium 40 Mg Tablet.dr 1 Tab PO DAILY Loratadine 10 Mg Tablet 1 Tab PO DAILY Losartan-Hctz 50-12.5 Mg Tab (Losartan/Hydrochlorothiazide) 1 Each Tablet 1 Tab PO DAILY Ferrous Sulfate 325 Mg Tablet 1 Tab PO DAILY Vitals/I & O Vital Sign - Last 24 Hours 01/24/17 01/24/17 01/24/17 01/24/17 11:03 11:42 15:00 15:07 Temp 97.7 97.7 97.7 97.7 Pulse 115 107 Resp 18 B/P 128/87 125/84 Pulse Ox 94 97 95 O2 Delivery Nasal Cannula Nasal Cannula Nasal Cannula Nasal Cannula O2 Flow Rate 2.0 3.0 2.0 3.0 01/24/17 01/24/17 01/24/17 01/24/17 19:00 20:00 20:12 23:00 Temp 98.6 100.3 98.6 100.3 Pulse 113 109 Resp 20 20 B/P 104/73 98/66 Pulse Ox 99 98 94 O2 Delivery Room Air Room Air Nasal Cannula Room Air O2 Flow Rate 3.0 01/25/17 01/25/17 01/25/17 03:00 07:00 07:43 Temp 99.5 97.7 99.5 97.7 Pulse 110 97 Resp 20 18 B/P 95/58 79/52 Pulse Ox 92 92 95 O2 Delivery Room Air Nasal Cannula Room Air O2 Flow Rate 2.0 Intake and Output 01/24/17 01/24/17 01/25/17 15:00 23:00 07:00 Intake Total 500 ml 840 ml 0 ml Output Total 1050 ml 150 ml Balance 500 ml -210 ml -150 ml MANUELA ALCAZAR MD Jan 25, 2017 09:30
--- NOTE | 2017-01-25 09:54 | PDOC ---
Infectious Disease Note ROS ROS GEN: Denies fevers, chills, sweats HEENT: Denies blurred vision, sore throat CV: Denies chest pain RESP: Denies shortness of air, cough GI: Denies n/v/d NEURO: Denies confusion, dizziness MSK: Denies weakness, joint pain/swelling Vital Sign Vital Signs Vital Signs Date Time Temp Pulse Resp B/P Pulse Ox O2 Delivery O2 Flow Rate FiO2 01/25/17 08:00 Nasal Cannula 2.0 01/25/17 07:43 95 01/25/17 07:00 97.7 97 18 79/52 97.7 Physical Exam PHYSICAL EXAM GENERAL: NAD, Alert HEENT: PERRL, OC/OP NECK: Supple, no JVD, no LN LUNGS: Clear HEART: S1S2, no gallop, no murmur ABD: Soft, NT, no organomegaly, no rebound EXT: No edema, no cyanosis LOCAL INTERMODAL TRUCK DRIVER: Alert, oriented x 3, no focal neurologic deficit SKIN: No rash IV: ok Labs Lab Laboratory Tests Test 01/25/17 05:00 White Blood Count 8.3x10^3/uL (4.0-11.0) Red Blood Count 2.52x10^6/uL (4.30-5.70) Hemoglobin 8.9g/dL (13.0-17.5) Hematocrit 26.8% (39.0-53.0) Mean Corpuscular Volume 107fL (79-100) Mean Corpuscular Hemoglobin 36pg (25-35) Mean Corpuscular Hemoglobin Concent 33g/dL (31-37) Red Cell Distribution Width 15.6% (11.5-14.5) Platelet Count 189x10^3/uL (140-400) Sodium Level 133mmol/L (136-145) Potassium Level 3.9mmol/L (3.5-5.1) Chloride Level 100mmol/L (98-107) Carbon Dioxide Level 25mmol/L (21-32) Anion Gap 8 (6-14) Blood Urea Nitrogen 4mg/dL (8-26) Creatinine 0.8mg/dL (0.7-1.3) Estimated GFR (Cockcroft-Gault) 97.3 Glucose Level 84mg/dL (70-99) Calcium Level 7.9mg/dL (8.5-10.1) Objective Assessment Fever ? atypical vs aspiration - despite Rocephin pleural effusions/Irregular right consolidation. h/o N/V Poor dentition SMA occlusion Plan Plan of Care Change to Levoflox/Zyvox/Flagyl Repeat CXR with developed effusions/SOA Check procalcitonin/sputum eval Await Vascular eval F/u labs May need Pulm eval D/w Dr. Fuller Thank you # [phone] AMANDA HILARIO MD Jan 25, 2017 09:54
[2017-01-25 10:32] VITALS: BP 92/67
[2017-01-25] MEDS: LINEZOLID 600 MG TABLET PO SCH ×2 (12:26→20:34)
[2017-01-25] MEDS: METRONIDAZOLE 500 MG TABLET. PO SCH ×2 (12:26→20:34)
--- NOTE | 2017-01-25 13:26 | PDOC ---
LEE ALLEN DISPLAY CARVER 01/25/17 1326: CARDIO Progress Notes Date and Time Date of Service 01/25/17 Time of Evaluation 1035 Vitals Vitals Vital Signs Date Time Temp Pulse Resp B/P Pulse Ox O2 Delivery O2 Flow Rate FiO2 01/25/17 11:02 Room Air 01/25/17 10:32 97.7 109 18 92/67 95 2.0 97.7 Weight Weight [ ] Input and Output Intake and Output Intake and Output 01/25/17 06:59 Intake Total 1340 ml Output Total 1200 ml Balance 140 ml Intake Oral 1340 ml Output Urine Total 1200 ml # Voids 3 # Bowel Movements 1 Laboratory Labs Laboratory Tests Test 01/25/17 05:00 White Blood Count 8.3x10^3/uL (4.0-11.0) Red Blood Count 2.52x10^6/uL (4.30-5.70) Hemoglobin 8.9g/dL (13.0-17.5) Hematocrit 26.8% (39.0-53.0) Mean Corpuscular Volume 107fL (79-100) Mean Corpuscular Hemoglobin 36pg (25-35) Mean Corpuscular Hemoglobin Concent 33g/dL (31-37) Red Cell Distribution Width 15.6% (11.5-14.5) Platelet Count 189x10^3/uL (140-400) Sodium Level 133mmol/L (136-145) Potassium Level 3.9mmol/L (3.5-5.1) Chloride Level 100mmol/L (98-107) Carbon Dioxide Level 25mmol/L (21-32) Anion Gap 8 (6-14) Blood Urea Nitrogen 4mg/dL (8-26) Creatinine 0.8mg/dL (0.7-1.3) Estimated GFR (Cockcroft-Gault) 97.3 Glucose Level 84mg/dL (70-99) Calcium Level 7.9mg/dL (8.5-10.1) Procalcitonin 0.21ng/mL (0.00-0.10) Microbiology Micro Microbiology 01/21/17 Blood Culture - Preliminary, Resulted NO GROWTH AFTER 3 DAYS 01/22/17 Urine Culture - Final, Complete 01/22/17 Urine Culture Result 1 (FLACO) - Final, Complete Physical Exam HEENT: Neck Supple W Full Motion Chest: Symmetric LUNGS: Clear to Auscultation, Other (diminished bases ) Heart: S1S2, no murmurs, other (tele SR-ST) Abdomen: Soft N/T Extremities: 2+ Dorsalis Pedis, No Edema, No Calf Tenderness Neurology: alert, oriented, follow commands Assessment Assessment 1. Sinus tachycardia multifactorial 2/2 underlying acute processes HR better controlled. slightly hypotensive. Will use IV Dig PRN for HR control if necessary continue supportive care 2. Mild acute on chronic diastolic HF echo with preserved LV function. No significant valvular or wall motion abnormalities CTA with bilateral small pl. effusion improved. Appears fairly well compensated. Will defer further diuresis with hypotension. 3. Leukocytosis with lactic acidosis and hypotension febrile overnight. ? aspiration being treated with IV antibiotics per ID 4. 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 5. ETOH abuse with hep C ? withdrawal. nausea/vomiting resolved. management per PCP 6. COPD per PCP 7. Substance use UDS + marijuana ZHENG RICHARD MD 01/25/17 1635: CARDIO Progress Notes Assessment Assessment Patient seen and examined. Agree with [employer]'s assessment and plan. Acute on chronic diast HF better compensated. Sinus tachycardia physiologic and improving. Continue IV abx per ID team. LEE ALLEN APRN Jan 25, 2017 13:26 ZHNEG RICHARD MD Jan 25, 2017 16:35
[2017-01-25 14:58] VITALS: BP 95/69
--- NOTE | 2017-01-25 16:15 | RAD ---
Exam: PA and lateral chest radiograph History: Fevers, effusion, weakness. Comparison: 01/21/2017. Findings: Cardiac silhouette appears within normal limits for size. No pneumothorax is seen. There is evidence of small bilateral pleural effusions, right larger than left. Right basilar density is favored to be atelectasis. There is evidence of pulmonary vascular redistribution, suggesting pulmonary vascular congestion/mild interstitial edema. Pressure convex scoliosis of the midthoracic spine is seen. Impression: 1. Small bilateral pleural effusions, right larger the left. 2. Right basilar density is favored to be atelectasis. 3. Pulmonary vascular congestion/mild interstitial edema.
[2017-01-25 19:00] VITALS: BP 107/74
[2017-01-25 22:44] VITALS: BP 96/52
[2017-01-26] VITALS (7 sets, daily range): BP systolic 86–111; BP diastolic 60–70
--- NOTE | 2017-01-26 02:57 | CONS ---
DATE OF CONSULTATION: 01/25/2017 PATIENT'S ROOM: 550 REQUESTING PHYSICIAN: Yane Fuller M.D. REASON FOR CONSULTATION: Fever. HISTORY OF PRESENT ILLNESS: The patient is a 66-year-old gentleman with history of COPD, hepatitis C as well as history of alcohol abuse. He was admitted to [facility] secondary to increased confusion approximately on 01/21/2017. He admitted having problems with nausea, vomiting, diarrhea and states he did not have a drink of alcohol 9 days prior to his presentation secondary to nausea, vomiting and diarrhea. White blood cell count initially 13.7, Rocephin was added on 01/22/2017, white blood cell count maxed out at 16.5 and has improved now to 8.3. However, he did have a temperature of 101.1 and 18 on 3rd and last night, temperature of 100.3, blood pressure is dropped down to 79/52. Hence, I have been consulted. Currently, the patient is lying in bed. He denies any fever, chills or sweats. He has no headaches. He has no sinus issues. Denies any problems with or sore throat. He does complain of some shortness of air, but no chest pain. He has minimal cough. No nausea, vomiting or diarrhea currently. Denies any problems passing his urine. No falls or swelling joints. No rashes. PAST MEDICAL HISTORY: Positive for hypertension, COPD, anemia, history of hepatitis C, anxiety, depression, eczema, history of alcohol abuse as well as tobacco abuse. PAST SURGICAL HISTORY: Positive for tonsillectomy. REVIEW OF SYSTEMS: Otherwise negative except for what is mentioned above. ALLERGIES: No known drug allergies. SOCIAL HISTORY: Positive for smoking as well as alcohol, does have a dog at home, has not been working recently. Denies any ill contacts. Does use marijuana occasionally. CURRENT MEDICATIONS: Include Rocephin, magnesium, Zyrtec, folic acid, Haldol, Ativan. Other meds are available and have been reviewed in the chart. PHYSICAL EXAMINATION: VITAL SIGNS: Most recent T-max 100.3, currently 97.7, pulse 97, respirations 18, blood pressure 79/52, satting 95% on 2 liters. CONSTITUTIONAL: He is cooperative. He is in no acute distress. He did have cataract surgeries, left eye, normal conjunctivae. HEENT: Oral cavity, oropharynx, has poor dentition. NECK: Supple, with no JVD. LUNGS: Decreased in the bases without wheeze. HEART: S1, S2. ABDOMEN: Soft, nontender, nondistended, positive bowel sounds. EXTREMITIES: No clubbing, cyanosis or gross edema. SKIN: Warm to touch without signs of rash. NEUROLOGIC: He is nonfocal with all extremities. He is somewhat of a poor historian. PSYCHIATRIC: Affect is flat. LABORATORY DATA: White count 8.3, hemoglobin 8.9, platelets of 189, creatinine of 0.8, glucose was 84. Albumin is 2. Urinalysis was clean at presentation. Drug screen was positive for cannabinoids. Alcohol was negative. MRSA screen was negative. He underwent a CT scan of the chest. No evidence of pulmonary embolism, small bilateral pleural effusions, some ground glass opacity as well as emphysema, irregular consolidation in the right apex and a 75% luminal diameter stenosis of the proximal superior mesenteric artery, 30% of the ostium of the celiac axis. Chest x-ray on presentation was negative. IMPRESSION: 1. Fever, questionable atypical versus aspiration prior to presentation. This is despite Rocephin. 2. Pleural effusion with irregular right consolidation, does have a history of nausea, vomiting, could represent again aspiration on the right upper consolidation. 3. Poor dentition. 4. SMA occlusion. RECOMMENDATIONS: We will discontinue Rocephin and begin levofloxacin, Zyvox and Flagyl. Repeat his chest x-ray with developing effusions and shortness of air. Check a procalcitonin, get evaluation. We will await Vascular evaluation, followup on labs, may need Pulmonary evaluation. This was discussed with Dr. Fuller. Thank you for allowing me to see and participate in the patient's care. If you have any questions, please do not hesitate to contact me. AMANDA HILARIO MD DR: EZEQUIEL/rodney JOB#: [id number] / [id number]
[2017-01-26 05:08] LABS: HEMATOCRIT 24.7 % (39.0-53.0); HEMOGLOBIN 8.4 g/dL (13.0-17.5); RED BLOOD COUNT 2.34 x10^6/uL (4.30-5.70); RED CELL DISTRIBUTION WIDTH 15.6 % (11.5-14.5); WHITE BLOOD COUNT 5.4 x10^3/uL (4.0-11.0)
[2017-01-26 05:35] LABS: ALBUMIN 1.7 g/dL (3.4-5.0); ALBUMIN/GLOBULIN RATIO 0.6 (1.0-1.7); CREATININE 0.8 mg/dL (0.7-1.3); GFR 97.3; MAGNESIUM 1.8 mg/dL (1.8-2.4); POTASSIUM 3.8 mmol/L (3.5-5.1); TOTAL BILIRUBIN 0.5 mg/dL (0.2-1.0); TOTAL PROTEIN 4.7 g/dL (6.4-8.2)
[2017-01-26] MEDS ORDERED: IOHEXOL 240 MG/ML 50ML VIAL. PO ONE (06:45)
[2017-01-26] MEDS ORDERED: CONTRAST GIVEN MC PRN (06:45)
[2017-01-26] MEDS ORDERED: IOHEXOL 300 MG/ML 75 ML VIAL IV ONE (06:45)
[2017-01-26] MEDS: IPRATRPIUM/ALBUTEROL 0.5/2.5MG 3 ML NEBU. NEB SCH ×4 (07:42→19:12)
--- NOTE | 2017-01-26 09:27 | PDOC ---
PROGRESS NOTES Subjective Subjective Patient without complaint, denies abdominal pain or SOA. Objective Objective Vital Signs Date Time Temp Pulse Resp B/P Pulse Ox O2 Delivery O2 Flow Rate FiO2 01/26/17 07:43 96 Room Air 01/26/17 07:00 97.7 90 18 95/70 97.7 01/25/17 20:00 2.0 Intake and Output 01/26/17 07:00 Intake Total 1250 ml Output Total 450 ml Balance 800 ml Intake Oral 1250 ml Output Urine Total 450 ml # Voids 1 # Bowel Movements 1 Physical Exam Abdomen: Normal bowel sounds, Soft, No tenderness Heart: Regular rate Extremities: No edema General: Alert, Oriented X3, No acute distress Lungs: Other (BS mildly decreased throughout, few crackles in bases) Assessment Assessment Problems Medical Problems: (1) Alcohol abuse Status: Acute (2) Encephalopathy Status: Acute (3) Heart failure Status: Acute (4) Hypokalemia Status: Acute Plan Plan of Care 1. Sepsis - unknown source. No fevers for over 24 hours, now on triple abx tx per ID. Continue to follow. CT abdomen today to r/o abdominal sources of infection. 2. fluid overload - some vascular congestion seen on CXR. Patient is not hypoxic on room air. Will give Lasix x1 now and follow. 3. anemia - stable, B12 pending. No evidence of active bleeding at this time. Continue to follow lab. Anticipate some improvement with diuresis. 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 5. debility - patient encouraged increased activity level. Girlfriend is concerned he is too weak to return home with her, patient doesn't think this will be a problem. Continue therapies daily. Comment Review of Relevant I have reviewed the following items christie (where applicable) has been applied. Labs Laboratory Tests Test 01/25/17 05:00 01/26/17 04:30 White Blood Count 8.3x10^3/uL (4.0-11.0) 5.4x10^3/uL (4.0-11.0) Red Blood Count 2.52x10^6/uL (4.30-5.70) 2.34x10^6/uL (4.30-5.70) Hemoglobin 8.9g/dL (13.0-17.5) 8.4g/dL (13.0-17.5) Hematocrit 26.8% (39.0-53.0) 24.7% (39.0-53.0) Mean Corpuscular Volume 107fL (79-100) 106fL (79-100) Mean Corpuscular Hemoglobin 36pg (25-35) 36pg (25-35) Mean Corpuscular Hemoglobin Concent 33g/dL (31-37) 34g/dL (31-37) Red Cell Distribution Width 15.6% (11.5-14.5) 15.6% (11.5-14.5) Platelet Count 189x10^3/uL (140-400) 217x10^3/uL (140-400) Sodium Level 133mmol/L (136-145) 136mmol/L (136-145) Potassium Level 3.9mmol/L (3.5-5.1) 3.8mmol/L (3.5-5.1) Chloride Level 100mmol/L (98-107) 104mmol/L (98-107) Carbon Dioxide Level 25mmol/L (21-32) 23mmol/L (21-32) Anion Gap 8 (6-14) 9 (6-14) Blood Urea Nitrogen 4mg/dL (8-26) 4mg/dL (8-26) Creatinine 0.8mg/dL (0.7-1.3) 0.8mg/dL (0.7-1.3) Estimated GFR (Cockcroft-Gault) 97.3 97.3 Glucose Level 84mg/dL (70-99) 112mg/dL (70-99) Calcium Level 7.9mg/dL (8.5-10.1) 8.0mg/dL (8.5-10.1) Procalcitonin 0.21ng/mL (0.00-0.10) BUN/Creatinine Ratio 5 (6-20) Magnesium Level 1.8mg/dL (1.8-2.4) Total Bilirubin 0.5mg/dL (0.2-1.0) Aspartate Amino Transf (AST/SGOT) 28U/L (15-37) Alanine Aminotransferase (ALT/SGPT) 18U/L (16-63) Alkaline Phosphatase 184U/L (46-116) Total Protein 4.7g/dL (6.4-8.2) Albumin 1.7g/dL (3.4-5.0) Albumin/Globulin Ratio 0.6 (1.0-1.7) Laboratory Tests Test 01/26/17 04:30 White Blood Count 5.4x10^3/uL (4.0-11.0) Red Blood Count 2.34x10^6/uL (4.30-5.70) Hemoglobin 8.4g/dL (13.0-17.5) Hematocrit 24.7% (39.0-53.0) Mean Corpuscular Volume 106fL (79-100) Mean Corpuscular Hemoglobin 36pg (25-35) Mean Corpuscular Hemoglobin Concent 34g/dL (31-37) Red Cell Distribution Width 15.6% (11.5-14.5) Platelet Count 217x10^3/uL (140-400) Sodium Level 136mmol/L (136-145) Potassium Level 3.8mmol/L (3.5-5.1) Chloride Level 104mmol/L (98-107) Carbon Dioxide Level 23mmol/L (21-32) Anion Gap 9 (6-14) Blood Urea Nitrogen 4mg/dL (8-26) Creatinine 0.8mg/dL (0.7-1.3) Estimated GFR (Cockcroft-Gault) 97.3 BUN/Creatinine Ratio 5 (6-20) Glucose Level 112mg/dL (70-99) Calcium Level 8.0mg/dL (8.5-10.1) Magnesium Level 1.8mg/dL (1.8-2.4) Total Bilirubin 0.5mg/dL (0.2-1.0) Aspartate Amino Transf (AST/SGOT) 28U/L (15-37) Alanine Aminotransferase (ALT/SGPT) 18U/L (16-63) Alkaline Phosphatase 184U/L (46-116) Total Protein 4.7g/dL (6.4-8.2) Albumin 1.7g/dL (3.4-5.0) Albumin/Globulin Ratio 0.6 (1.0-1.7) Microbiology 01/21/17 Blood Culture - Preliminary, Resulted NO GROWTH AFTER 4 DAYS 01/22/17 Urine Culture - Final, Complete 01/22/17 Urine Culture Result 1 (FLACO) - Final, Complete Medications Current Medications Ondansetron HCl 4 mg 4 mg 1X ONCE IV Last administered on 01/21/17 16:29; Start 01/21/17 at 16:30; Stop 01/21/17 at 16:31; Status DC Sodium Chloride 1,000 ml @ 1,000 mls/hr Q1H IV Last administered on 01/21/17 16:29; Start 01/21/17 at 16:20; Stop 01/21/17 at 17:19; Status DC Potassium Chloride/Sodium Chloride (KCl 40 Meq-NS 1,000 ml Iv Soln) 1,000 ml @ 75 mls/hr 1X ONCE IV Last administered on 01/21/17 17:15; Start 01/21/17 at 17: 15; Stop 01/22/17 at 06:34; Status DC Ondansetron HCl 4 mg 4 mg PRN Q8HRS PRN IV NAUSEA/VOMITING; Start 01/21/17 at 17 :45; Stop 01/22/17 at 17:44; Status DC Sodium Chloride 1,000 ml @ 125 mls/hr Q8H IV Last administered on 01/22/17 14: 00; Start 01/21/17 at 18:00; Stop 01/22/17 at 17:59; Status DC Multivitamins 10 ml/Folic Acid 1 mg/Thiamine HCl 100 mg/Dextrose/ Sodium Chloride 1,011.2 ml @ 100 mls/ hr DAILY IV Last administered on 01/21/17 22:10 ; Start 01/21/17 at 22:00; Stop 01/23/17 at 08:31; Status DC Norepinephrine Bitartrate 8 mg/ Sodium Chloride 258 ml @ 0 mls/hr CONT PRN IV SEE I/O RECORD Last administered on 01/23/17 06:08; Start 01/21/17 at 20:30; Stop 01/24/17 at 11:06; Status DC Potassium Chloride (KCl Premix 10meq) 100 ml @ 100 mls/hr Q1H IV Last administered on 01/22/17 01:56; Start 01/21/17 at 21:00; Stop 01/22/17 at 00:59; Status DC Haloperidol Lactate (Haldol) 1 mg PRN Q2HR PRN IVP MILD AGITATION Last administered on 01/22/17 00:00; Start 01/21/17 at 20:30 Haloperidol Lactate 2 mg 2 mg PRN Q2HR PRN IVP MODERATE AGITATION Last administered on 01/22/17 17:40; Start 01/21/17 at 21:00 Potassium Chloride 100 ml @ 100 mls/hr PRN Q1HR PRN IV SEE COMMENTS; Start 01/22/17 at 08:15 Potassium Chloride 100 ml @ 100 mls/hr PRN Q1HR PRN IV SEE COMMENTS; Start 01/22/17 at 08:15 Potassium Chloride 100 ml @ 100 mls/hr PRN Q1HR PRN IV SEE COMMENTS; Start 01/22/17 at 08:15 Magnesium Sulfate/ Dextrose 100 ml @ 50 mls/hr PRN DAILY PRN IV SEE COMMENTS Last administered on 01/22/17 08:57; Start 01/22/17 at 09:00 Potassium Chloride (KCl Premix 10meq) 100 ml @ 100 mls/hr Q1H IV Last administered on 01/22/17 11:52; Start 01/22/17 at 09:00; Stop 01/22/17 at 12:59; Status DC Ferrous Sulfate (Feosol) 325 mg DAILY PO Last administered on 01/25/17 08:26; Start 01/22/17 at 11:00 Folic Acid (Folic Acid) 1 mg DAILY PO Last administered on 01/25/17 08:26; Start 01/22/17 at 11:00 Cetirizine HCl (Zyrtec) 10 mg DAILY PO Last administered on 01/25/17 08:26; Start 01/22/17 at 11:00 Pantoprazole Sodium 40 mg 40 mg DAILY PO Last administered on 01/25/17 08:26; Start 01/22/17 at 11:00 Ceftriaxone Sodium/Sodium Chloride (Rocephin/Iv Sodium Chloride 0.9% 50ml) 50 ml @ 100 mls/hr Q24H IV Last administered on 01/24/17 12:40; Start 01/22/17 at 11:00; Stop 01/25/17 at 09:40; Status DC Albuterol/ Ipratropium (Duoneb) 3 ml RTQID NEB Last administered on 01/26/17 07 :42; Start 01/22/17 at 12:00 Lorazepam (Ativan) 0.5 mg PRN Q6HRS PRN PO ANXIETY / AGITATION; Start 01/22/17 at 17:30 Lorazepam (Ativan) 1 mg PRN Q6HRS PRN PO ANXIETY / AGITATION Last administered on 01/25/17 20:34; Start 01/22/17 at 17:30 Potassium Chloride 40 meq 40 meq 1X ONCE PO Last administered on 01/22/17 20: 34; Start 01/22/17 at 20:30; Stop 01/22/17 at 20:31; Status DC Sodium Chloride (Iv Sodium Chloride 0.9% 1000ml Bag) 1,000 ml @ 125 mls/hr Q8H IV Last administered on 01/23/17 00:36; Start 01/22/17 at 21:45; Stop 01/23/17 at 08:31; Status DC Magnesium Chloride (Mag Delay) 64 mg DAILY PO Last administered on 01/25/17 08: 25; Start 01/24/17 at 10:30 Furosemide (Lasix) 20 mg 1X ONCE IVP Last administered on 01/24/17 12:40; Start 01/24/17 at 10:15; Stop 01/24/17 at 10:35; Status DC Iohexol (Omnipaque 300 Mg/ml) 75 ml 1X ONCE IV Last administered on 01/24/17 11:58; Start 01/24/17 at 11:15; Stop 01/24/17 at 11:16; Status DC Info 1 each 1 each PRN DAILY PRN MC SEE COMMENTS; Start 01/24/17 at 11:15; Stop 01/26/17 at 11:14 Levofloxacin/ Dextrose (LEVAQUIN 750mg PREMIX) 150 ml @ 100 mls/hr Q24H IV Last administered on 01/25/17 11:00; Start 01/25/17 at 11:00 Linezolid (Zyvox) 600 mg BID PO Last administered on 01/25/17 20:34; Start 01/25 at 10:30 Metronidazole (Flagyl) 500 mg Q12HR PO Last administered on 01/25/17 20:34; Start 01/25/17 at 10:30 Iohexol (Omnipaque 240 Mg/ml) 30 ml 1X ONCE PO Last administered on 01/26/17 08:41; Start 01/26/17 at 06:45; Stop 01/26/17 at 06:46; Status DC Iohexol (Omnipaque 300 Mg/ml) 75 ml 1X ONCE IV Last administered on 01/26/17 08:41; Start 01/26/17 at 06:45; Stop 01/26/17 at 06:46; Status DC Info (Do NOT chart on this entry -- for MONITORING) 1 each PRN DAILY PRN MC SEE COMMENTS; Start 01/26/17 at 06:45; Stop 01/28/17 at 06:44 Active Scripts Active Reported Folic Acid 1 Mg Tablet 1 Tab PO DAILY Pantoprazole Sodium 40 Mg Tablet.dr 1 Tab PO DAILY Loratadine 10 Mg Tablet 1 Tab PO DAILY Losartan-Hctz 50-12.5 Mg Tab (Losartan/Hydrochlorothiazide) 1 Each Tablet 1 Tab PO DAILY Ferrous Sulfate 325 Mg Tablet 1 Tab PO DAILY Vitals/I & O Vital Sign - Last 24 Hours 01/25/17 01/25/17 01/25/17 01/25/17 10:32 11:02 14:58 15:55 Temp 97.7 97.7 97.7 97.7 Pulse 109 101 Resp 18 18 B/P 92/67 95/69 Pulse Ox 95 99 O2 Delivery Nasal Cannula Room Air Room Air Room Air O2 Flow Rate 2.0 01/25/17 01/25/17 01/25/17 01/25/17 19:00 20:00 20:00 22:44 Temp 97.9 98.3 97.9 98.3 Pulse 105 112 Resp 18 18 B/P 107/74 96/52 Pulse Ox 97 98 98 O2 Delivery Room Air Room Air Nasal Cannula Room Air O2 Flow Rate 2.0 01/26/17 01/26/17 07:00 07:43 Temp 97.7 97.7 Pulse 90 Resp 18 B/P 95/70 Pulse Ox 96 96 O2 Delivery Room Air Room Air Intake and Output 01/25/17 01/25/17 01/26/17 15:00 23:00 07:00 Intake Total 500 ml 550 ml 200 ml Output Total 150 ml 300 ml Balance 500 ml 400 ml -100 ml MANUELA ALCAZAR MD Jan 26, 2017 09:27
[2017-01-26] MEDS: FERROUS SULFATE 325 MG TABLET. PO SCH (09:36)
[2017-01-26] MEDS: MAGNESIUM CHLORIDE ER 64 MG TABLET.ER PO SCH ×2 (09:36)
[2017-01-26] MEDS: FOLIC ACID 1 MG TABLET. PO SCH (09:37)
[2017-01-26] MEDS: PANTOPRAZOLE 40 MG TABLET.DR. PO SCH (09:37)
[2017-01-26] MEDS: LINEZOLID 600 MG TABLET PO SCH ×2 (09:37→19:41)
[2017-01-26] MEDS: METRONIDAZOLE 500 MG TABLET. PO SCH ×2 (09:37→19:41)
[2017-01-26] MEDS: CETIRIZINE HCL 10 MG TABLET. PO SCH (09:38)
[2017-01-26] MEDS ORDERED: FUROSEMIDE 40 MG/4 ML VIAL. IVP ONE (10:00)
--- NOTE | 2017-01-26 10:19 | PDOC ---
Infectious Disease Note Subjective Subjective Feels better. Less congestion ROS ROS GEN: Denies fevers, chills, sweats HEENT: Denies blurred vision, sore throat CV: Denies chest pain RESP: Denies shortness of air, cough GI: Denies n/v/d NEURO: Denies confusion, dizziness MSK: Denies weakness, joint pain/swelling Vital Sign Vital Signs Vital Signs Date Time Temp Pulse Resp B/P Pulse Ox O2 Delivery O2 Flow Rate FiO2 01/26/17 07:43 96 Room Air 01/26/17 07:00 97.7 90 18 95/70 97.7 01/25/17 20:00 2.0 Physical Exam PHYSICAL EXAM GENERAL: NAD, Alert. In chair and eating HEENT: PERRL, OC/OP -clear -poor dentition NECK: Supple, no JVD, no LN LUNGS: Decreased in bases HEART: S1S2, no gallop, no murmur ABD: Soft, NT, no organomegaly, no rebound EXT: No edema, no cyanosis [employer] FILLING MACHINE OPERATOR: Alert, oriented x 3, no focal neurologic deficit SKIN: No rash IV: ok Labs Lab Laboratory Tests Test 01/26/17 04:30 White Blood Count 5.4x10^3/uL (4.0-11.0) Red Blood Count 2.34x10^6/uL (4.30-5.70) Hemoglobin 8.4g/dL (13.0-17.5) Hematocrit 24.7% (39.0-53.0) Mean Corpuscular Volume 106fL (79-100) Mean Corpuscular Hemoglobin 36pg (25-35) Mean Corpuscular Hemoglobin Concent 34g/dL (31-37) Red Cell Distribution Width 15.6% (11.5-14.5) Platelet Count 217x10^3/uL (140-400) Sodium Level 136mmol/L (136-145) Potassium Level 3.8mmol/L (3.5-5.1) Chloride Level 104mmol/L (98-107) Carbon Dioxide Level 23mmol/L (21-32) Anion Gap 9 (6-14) Blood Urea Nitrogen 4mg/dL (8-26) Creatinine 0.8mg/dL (0.7-1.3) Estimated GFR (Cockcroft-Gault) 97.3 BUN/Creatinine Ratio 5 (6-20) Glucose Level 112mg/dL (70-99) Calcium Level 8.0mg/dL (8.5-10.1) Magnesium Level 1.8mg/dL (1.8-2.4) Total Bilirubin 0.5mg/dL (0.2-1.0) Aspartate Amino Transf (AST/SGOT) 28U/L (15-37) Alanine Aminotransferase (ALT/SGPT) 18U/L (16-63) Alkaline Phosphatase 184U/L (46-116) Total Protein 4.7g/dL (6.4-8.2) Albumin 1.7g/dL (3.4-5.0) Albumin/Globulin Ratio 0.6 (1.0-1.7) Vitamin B12 Level 1989pg/mL (247-911) Objective Assessment Fever ? atypical vs aspiration -imporved pleural effusions/Irregular right consolidation. h/o N/V. Small on CXR Poor dentition SMA occlusion Plan Plan of Care Cont Levoflox leonard /Zyvox/Flagyl F/u CT abd/pel Trying for sputum Await Vascular eval F/u labs D/w family AMANDA HILARIO MD Jan 26, 2017 10:19
[2017-01-26] MEDS: LEVOFLOXACIN 500 MG TABLET PO SCH (11:40)
--- NOTE | 2017-01-26 12:09 | RAD ---
CT of the abdomen and pelvis with contrast, 01/26/2007: History: Fever, possible abscess Multidetector CT imaging was performed following oral and IV administration of contrast. There were small bilateral pleural effusions which have diminished since 01/24/2017. The lung bases have partially cleared. The liver is of lower than normal density compatible with hepatic steatosis. No hepatic mass is seen. There is a dense gallstone in the dependent aspect of the gallbladder. No pericholecystic edema is evident. The pancreas is unremarkable. The spleen is of normal size. There is mild bilateral renal cortical scarring. The kidneys show no evidence of obstruction. No adrenal abnormality is detected. There is moderate aortoiliac calcific plaquing without evidence of aneurysm. There is moderate to severe stenosis of the proximal left superior mesenteric artery as noted on yesterday's CT chest exam. No abdominal or pelvic adenopathy is seen. The bowel loops are not dilated. A portion of the appendix is visualized and it shows no abnormality. No free fluid or free air is evident in the abdomen or pelvis. There are moderate scattered degenerative changes in the lumbar spine. There is a moderate vertebral compression deformity at L1. No acute fracture line or paraspinous hemorrhage is seen. This is probably an old fracture. IMPRESSION: 1. Resolving bibasilar infiltrates and diminishing small pleural effusions. 2. Cholelithiasis. 3. Hepatic steatosis. 4. Aortic atherosclerosis with moderate stenosis of the proximal superior mesenteric artery. 5. L1 vertebral compression fracture, probably old. PQRS Compliance Statement: One or more of the following individualized dose reduction techniques were utilized for this examination: 1. Automated exposure control 2. Adjustment of the mA and/or kV according to patient size 3. Use of iterative reconstruction technique
--- NOTE | 2017-01-26 12:44 | PDOC ---
CARDIO Progress Notes Date and Time Date of Service 01/26/17 Time of Evaluation 1110 Subjective Subjective: No Chest Pain, No shortness of breath, Other (feeling much better today) Vitals Vitals Vital Signs Date Time Temp Pulse Resp B/P Pulse Ox O2 Delivery O2 Flow Rate FiO2 01/26/17 11:53 96 Room Air 01/26/17 11:16 98.1 104 17 91/64 98.1 01/25/17 20:00 2.0 Weight Weight [ ] Input and Output Intake and Output Intake and Output 01/26/17 07:00 Intake Total 1250 ml Output Total 450 ml Balance 800 ml Intake Oral 1250 ml Output Urine Total 450 ml # Voids 1 # Bowel Movements 1 Laboratory Labs Laboratory Tests Test 01/26/17 04:30 White Blood Count 5.4x10^3/uL (4.0-11.0) Red Blood Count 2.34x10^6/uL (4.30-5.70) Hemoglobin 8.4g/dL (13.0-17.5) Hematocrit 24.7% (39.0-53.0) Mean Corpuscular Volume 106fL (79-100) Mean Corpuscular Hemoglobin 36pg (25-35) Mean Corpuscular Hemoglobin Concent 34g/dL (31-37) Red Cell Distribution Width 15.6% (11.5-14.5) Platelet Count 217x10^3/uL (140-400) Sodium Level 136mmol/L (136-145) Potassium Level 3.8mmol/L (3.5-5.1) Chloride Level 104mmol/L (98-107) Carbon Dioxide Level 23mmol/L (21-32) Anion Gap 9 (6-14) Blood Urea Nitrogen 4mg/dL (8-26) Creatinine 0.8mg/dL (0.7-1.3) Estimated GFR (Cockcroft-Gault) 97.3 BUN/Creatinine Ratio 5 (6-20) Glucose Level 112mg/dL (70-99) Calcium Level 8.0mg/dL (8.5-10.1) Magnesium Level 1.8mg/dL (1.8-2.4) Total Bilirubin 0.5mg/dL (0.2-1.0) Aspartate Amino Transf (AST/SGOT) 28U/L (15-37) Alanine Aminotransferase (ALT/SGPT) 18U/L (16-63) Alkaline Phosphatase 184U/L (46-116) Total Protein 4.7g/dL (6.4-8.2) Albumin 1.7g/dL (3.4-5.0) Albumin/Globulin Ratio 0.6 (1.0-1.7) Vitamin B12 Level 1989pg/mL (247-911) Microbiology Micro Microbiology 01/21/17 Blood Culture - Preliminary, Resulted NO GROWTH AFTER 4 DAYS 01/22/17 Urine Culture - Final, Complete 01/22/17 Urine Culture Result 1 (FLACO) - Final, Complete Physical Exam HEENT: Neck Supple W Full Motion Chest: Symmetric LUNGS: Clear to Auscultation, Other (diminished bases ) Heart: S1S2, no murmurs, other (tele SR-ST) Abdomen: Soft N/T Extremities: 2+ Dorsalis Pedis, No Edema, No Calf Tenderness Neurology: alert, oriented, follow commands Assessment Assessment 1. Sinus tachycardia 2/2 underlying acute processes stable IV Dig PRN for HR control if necessary continue supportive care 2. Mild acute on chronic diastolic HF echo with preserved LV function. No significant valvular or wall motion abnormalities repeat CXR with vascular congestions; agree with dose of IV Lasix. although pleural fluid present, patient appears fairly well compensated and denies SOA. 3. Leukocytosis with lactic acidosis and hypotension ? source being treated with IV antibiotics per ID 4. Superior mesenteric artery stenosis per CTA vascular surgery consulted. 5. ETOH abuse with hep C management per PCP 6. COPD per PCP LEE ALLEN APRN Jan 26, 2017 12:44
--- NOTE | 2017-01-26 13:22 | PDOC ---
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 GAEL WILL MD Jan 26, 2017 13:21
[2017-01-26] MEDS: ASPIRIN ENTERIC COATED 81 MG TABLET.DR. PO SCH (15:21)
[2017-01-26] MEDS: LORAZEPAM 1 MG TABLET. PO PRN (19:41)
[2017-01-27 03:00] VITALS: BP 90/59
--- NOTE | 2017-01-27 04:27 | CONS ---
DATE OF CONSULTATION: 01/26/2017 REASON FOR CONSULTATION: SMA and celiac stenosis. HISTORY OF PRESENT ILLNESS: This is a 66-year-old male with a long history of alcohol abuse, smoking, and chronic lung disease. He was admitted with altered mental status. For some reason, he underwent a CT scan and was found to have a 30-40% stenosis of the celiac artery and a 70% stenosis of the SMA. He has had no prior history of any vascular procedures. We were asked to see him regarding that. He has no symptoms of ____ pain and no significant unintended weight loss. PAST MEDICAL HISTORY: ALLERGIES: NONE. MEDICATIONS: See his reconciliation list. He does not take aspirin. He was on 325 a day and then he thought it hurt his stomach. OPERATIONS: Tonsillectomy remotely and then a finger amputation on the right. ILLNESSES: He does have this alcohol abuse problem with chronic lung disease and a little bit of hypertension. PHYSICAL EXAMINATION: GENERAL: Pleasant, alert male, in no severe distress. NECK: 2+ carotids, 2+ radial pulses. CARDIOVASCULAR: Heart rate is regular. LUNGS: Nonlabored respirations. ABDOMEN: Soft. He has just finished lunch, and he has had no problem. 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 PLAN: I discussed symptoms for him to watch out for such as postprandial pain, weight loss. I recommend that he start 81 mg of coated aspirin daily and he stated he would do so. We will also order that. We will have a followup ultrasound of his celiac and SMA in our vascular lab in 6 months. Thanks for allowing us to see him. GAEL WILL MD DR: ALEXA/rodney JOB#: [id number] / [id number]
[2017-01-27 04:40] LABS: HEMATOCRIT 26.5 % (39.0-53.0); HEMOGLOBIN 8.9 g/dL (13.0-17.5); RED BLOOD COUNT 2.52 x10^6/uL (4.30-5.70); WHITE BLOOD COUNT 6.7 x10^3/uL (4.0-11.0)
[2017-01-27 04:53] LABS: CREATININE 0.9 mg/dL (0.7-1.3); POTASSIUM 4.4 mmol/L (3.5-5.1)
[2017-01-27] MEDS: LEVOFLOXACIN 500 MG TABLET PO SCH (06:28)
[2017-01-27] MEDS: LORAZEPAM 1 MG TABLET. PO PRN (06:31)
[2017-01-27 07:00] VITALS: BP 98/53
[2017-01-27] MEDS: IPRATRPIUM/ALBUTEROL 0.5/2.5MG 3 ML NEBU. NEB SCH ×3 (08:46→15:19)
[2017-01-27] MEDS: LINEZOLID 600 MG TABLET PO SCH (08:57)
[2017-01-27] MEDS: CETIRIZINE HCL 10 MG TABLET. PO SCH (08:57)
[2017-01-27] MEDS: PANTOPRAZOLE 40 MG TABLET.DR. PO SCH (08:57)
[2017-01-27] MEDS: METRONIDAZOLE 500 MG TABLET. PO SCH (08:57)
[2017-01-27] MEDS: FOLIC ACID 1 MG TABLET. PO SCH (08:58)
[2017-01-27] MEDS: ASPIRIN ENTERIC COATED 81 MG TABLET.DR. PO SCH (08:58)
[2017-01-27] MEDS: FERROUS SULFATE 325 MG TABLET. PO SCH (08:58)
[2017-01-27] MEDS: MAGNESIUM CHLORIDE ER 64 MG TABLET.ER PO SCH ×2 (08:58)
--- NOTE | 2017-01-27 09:12 | PDOC ---
PROGRESS NOTES Subjective Subjective Patient without complaint. States he feels much better, ready to go home today. Objective Objective Vital Signs Date Time Temp Pulse Resp B/P Pulse Ox O2 Delivery O2 Flow Rate FiO2 01/27/17 08:46 97 Room Air 01/27/17 07:00 97.8 91 18 98/53 97.8 01/25/17 20:00 2.0 Intake and Output 01/27/17 07:00 Intake Total 360 ml Output Total 201 ml Balance 159 ml Intake Oral 360 ml Output Urine Total 200 ml Stool Total 1 ml # Voids 3 # Bowel Movements 1 Physical Exam Abdomen: Normal bowel sounds, Soft, No tenderness Heart: Regular rate Extremities: No edema General: Alert, Oriented X3, No acute distress Lungs: Clear to auscultation Assessment Assessment Problems Medical Problems: (1) Alcohol abuse Status: Acute (2) Encephalopathy Status: Acute (3) Heart failure Status: Acute (4) Hypokalemia Status: Acute Plan Plan of Care 1. Sepsis - unknown source. Much improved. No fever for over 48 hours. Home today on po abx per ID. 2. anemia - Hgb improved with some diuresis yesterday. Home on Fe. No B12 needed. 3. AE mild diastolic CHF - stable, no tx presently needed. 4. ETOH abuse - patient states he intends to quit drinking. 5. HTN - patient remains normotensive without meds. Follow up in office to reevaluate. 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 Discussed with patient. Follow up with Vascular Surgery in 6 months. 7. debility - improving. Patient advised increased activity at home. Do not feel home health presently indicated, patient should not be homebound. Comment Review of Relevant I have reviewed the following items christie (where applicable) has been applied. Labs Laboratory Tests Test 01/26/17 04:30 01/27/17 03:50 White Blood Count 5.4x10^3/uL (4.0-11.0) 6.7x10^3/uL (4.0-11.0) Red Blood Count 2.34x10^6/uL (4.30-5.70) 2.52x10^6/uL (4.30-5.70) Hemoglobin 8.4g/dL (13.0-17.5) 8.9g/dL (13.0-17.5) Hematocrit 24.7% (39.0-53.0) 26.5% (39.0-53.0) Mean Corpuscular Volume 106fL (79-100) 105fL (79-100) Mean Corpuscular Hemoglobin 36pg (25-35) 35pg (25-35) Mean Corpuscular Hemoglobin Concent 34g/dL (31-37) 34g/dL (31-37) Red Cell Distribution Width 15.6% (11.5-14.5) 16.0% (11.5-14.5) Platelet Count 217x10^3/uL (140-400) 265x10^3/uL (140-400) Sodium Level 136mmol/L (136-145) 135mmol/L (136-145) Potassium Level 3.8mmol/L (3.5-5.1) 4.4mmol/L (3.5-5.1) Chloride Level 104mmol/L (98-107) 102mmol/L (98-107) Carbon Dioxide Level 23mmol/L (21-32) 23mmol/L (21-32) Anion Gap 9 (6-14) 10 (6-14) Blood Urea Nitrogen 4mg/dL (8-26) 5mg/dL (8-26) Creatinine 0.8mg/dL (0.7-1.3) 0.9mg/dL (0.7-1.3) Estimated GFR (Cockcroft-Gault) 97.3 85.0 BUN/Creatinine Ratio 5 (6-20) Glucose Level 112mg/dL (70-99) 98mg/dL (70-99) Calcium Level 8.0mg/dL (8.5-10.1) 8.0mg/dL (8.5-10.1) Magnesium Level 1.8mg/dL (1.8-2.4) Total Bilirubin 0.5mg/dL (0.2-1.0) Aspartate Amino Transf (AST/SGOT) 28U/L (15-37) Alanine Aminotransferase (ALT/SGPT) 18U/L (16-63) Alkaline Phosphatase 184U/L (46-116) Total Protein 4.7g/dL (6.4-8.2) Albumin 1.7g/dL (3.4-5.0) Albumin/Globulin Ratio 0.6 (1.0-1.7) Vitamin B12 Level 1989pg/mL (247-911) Laboratory Tests Test 01/27/17 03:50 White Blood Count 6.7x10^3/uL (4.0-11.0) Red Blood Count 2.52x10^6/uL (4.30-5.70) Hemoglobin 8.9g/dL (13.0-17.5) Hematocrit 26.5% (39.0-53.0) Mean Corpuscular Volume 105fL (79-100) Mean Corpuscular Hemoglobin 35pg (25-35) Mean Corpuscular Hemoglobin Concent 34g/dL (31-37) Red Cell Distribution Width 16.0% (11.5-14.5) Platelet Count 265x10^3/uL (140-400) Sodium Level 135mmol/L (136-145) Potassium Level 4.4mmol/L (3.5-5.1) Chloride Level 102mmol/L (98-107) Carbon Dioxide Level 23mmol/L (21-32) Anion Gap 10 (6-14) Blood Urea Nitrogen 5mg/dL (8-26) Creatinine 0.9mg/dL (0.7-1.3) Estimated GFR (Cockcroft-Gault) 85.0 Glucose Level 98mg/dL (70-99) Calcium Level 8.0mg/dL (8.5-10.1) Microbiology 01/21/17 Blood Culture - Final, Complete NO GROWTH AFTER 5 DAYS 01/22/17 Urine Culture - Final, Complete 01/22/17 Urine Culture Result 1 (FLACO) - Final, Complete Medications Current Medications Ondansetron HCl 4 mg 4 mg 1X ONCE IV Last administered on 01/21/17 16:29; Start 01/21/17 at 16:30; Stop 01/21/17 at 16:31; Status DC Sodium Chloride 1,000 ml @ 1,000 mls/hr Q1H IV Last administered on 01/21/17 16:29; Start 01/21/17 at 16:20; Stop 01/21/17 at 17:19; Status DC Potassium Chloride/Sodium Chloride (KCl 40 Meq-NS 1,000 ml Iv Soln) 1,000 ml @ 75 mls/hr 1X ONCE IV Last administered on 01/21/17 17:15; Start 01/21/17 at 17: 15; Stop 01/22/17 at 06:34; Status DC Ondansetron HCl 4 mg 4 mg PRN Q8HRS PRN IV NAUSEA/VOMITING; Start 01/21/17 at 17 :45; Stop 01/22/17 at 17:44; Status DC Sodium Chloride 1,000 ml @ 125 mls/hr Q8H IV Last administered on 01/22/17 14: 00; Start 01/21/17 at 18:00; Stop 01/22/17 at 17:59; Status DC Multivitamins 10 ml/Folic Acid 1 mg/Thiamine HCl 100 mg/Dextrose/ Sodium Chloride 1,011.2 ml @ 100 mls/ hr DAILY IV Last administered on 01/21/17 22:10 ; Start 01/21/17 at 22:00; Stop 01/23/17 at 08:31; Status DC Norepinephrine Bitartrate 8 mg/ Sodium Chloride 258 ml @ 0 mls/hr CONT PRN IV SEE I/O RECORD Last administered on 01/23/17 06:08; Start 01/21/17 at 20:30; Stop 01/24/17 at 11:06; Status DC Potassium Chloride (KCl Premix 10meq) 100 ml @ 100 mls/hr Q1H IV Last administered on 01/22/17 01:56; Start 01/21/17 at 21:00; Stop 01/22/17 at 00:59; Status DC Haloperidol Lactate (Haldol) 1 mg PRN Q2HR PRN IVP MILD AGITATION Last administered on 01/22/17 00:00; Start 01/21/17 at 20:30 Haloperidol Lactate 2 mg 2 mg PRN Q2HR PRN IVP MODERATE AGITATION Last administered on 01/22/17 17:40; Start 01/21/17 at 21:00 Potassium Chloride 100 ml @ 100 mls/hr PRN Q1HR PRN IV SEE COMMENTS; Start 01/22/17 at 08:15 Potassium Chloride 100 ml @ 100 mls/hr PRN Q1HR PRN IV SEE COMMENTS; Start 01/22/17 at 08:15 Potassium Chloride 100 ml @ 100 mls/hr PRN Q1HR PRN IV SEE COMMENTS; Start 01/22/17 at 08:15 Magnesium Sulfate/ Dextrose 100 ml @ 50 mls/hr PRN DAILY PRN IV SEE COMMENTS Last administered on 01/22/17 08:57; Start 01/22/17 at 09:00 Potassium Chloride (KCl Premix 10meq) 100 ml @ 100 mls/hr Q1H IV Last administered on 01/22/17 11:52; Start 01/22/17 at 09:00; Stop 01/22/17 at 12:59; Status DC Ferrous Sulfate (Feosol) 325 mg DAILY PO Last administered on 01/26/17 09:36; Start 01/22/17 at 11:00 Folic Acid (Folic Acid) 1 mg DAILY PO Last administered on 01/26/17 09:37; Start 01/22/17 at 11:00 Cetirizine HCl (Zyrtec) 10 mg DAILY PO Last administered on 01/26/17 09:38; Start 01/22/17 at 11:00 Pantoprazole Sodium 40 mg 40 mg DAILY PO Last administered on 01/26/17 09:37; Start 01/22/17 at 11:00 Ceftriaxone Sodium/Sodium Chloride (Rocephin/Iv Sodium Chloride 0.9% 50ml) 50 ml @ 100 mls/hr Q24H IV Last administered on 01/24/17 12:40; Start 01/22/17 at 11:00; Stop 01/25/17 at 09:40; Status DC Albuterol/ Ipratropium (Duoneb) 3 ml RTQID NEB Last administered on 01/27/17 08 :46; Start 01/22/17 at 12:00 Lorazepam (Ativan) 0.5 mg PRN Q6HRS PRN PO ANXIETY / AGITATION; Start 01/22/17 at 17:30 Lorazepam (Ativan) 1 mg PRN Q6HRS PRN PO ANXIETY / AGITATION Last administered on 01/27/17 06:31; Start 01/22/17 at 17:30 Potassium Chloride 40 meq 40 meq 1X ONCE PO Last administered on 01/22/17 20: 34; Start 01/22/17 at 20:30; Stop 01/22/17 at 20:31; Status DC Sodium Chloride (Iv Sodium Chloride 0.9% 1000ml Bag) 1,000 ml @ 125 mls/hr Q8H IV Last administered on 01/23/17 00:36; Start 01/22/17 at 21:45; Stop 01/23/17 at 08:31; Status DC Magnesium Chloride (Mag Delay) 64 mg DAILY PO Last administered on 01/26/17 09: 36; Start 01/24/17 at 10:30 Furosemide (Lasix) 20 mg 1X ONCE IVP Last administered on 01/24/17 12:40; Start 01/24/17 at 10:15; Stop 01/24/17 at 10:35; Status DC Iohexol (Omnipaque 300 Mg/ml) 75 ml 1X ONCE IV Last administered on 01/24/17 11:58; Start 01/24/17 at 11:15; Stop 01/24/17 at 11:16; Status DC Info 1 each 1 each PRN DAILY PRN MC SEE COMMENTS; Start 01/24/17 at 11:15; Stop 01/26/17 at 11:14; Status DC Levofloxacin/ Dextrose (LEVAQUIN 750mg PREMIX) 150 ml @ 100 mls/hr Q24H IV Last administered on 01/25/17 11:00; Start 01/25/17 at 11:00; Stop 01/26/17 at 10: 18; Status DC Linezolid (Zyvox) 600 mg BID PO Last administered on 01/26/17 19:41; Start 01/25 at 10:30 Metronidazole (Flagyl) 500 mg Q12HR PO Last administered on 01/26/17 19:41; Start 01/25/17 at 10:30 Iohexol (Omnipaque 240 Mg/ml) 30 ml 1X ONCE PO Last administered on 01/26/17 08:41; Start 01/26/17 at 06:45; Stop 01/26/17 at 06:46; Status DC Iohexol (Omnipaque 300 Mg/ml) 75 ml 1X ONCE IV Last administered on 01/26/17 08:41; Start 01/26/17 at 06:45; Stop 01/26/17 at 06:46; Status DC Info (Do NOT chart on this entry -- for MONITORING) 1 each PRN DAILY PRN MC SEE COMMENTS; Start 01/26/17 at 06:45; Stop 01/28/17 at 06:44 Furosemide (Lasix) 40 mg 1X ONCE IVP Last administered on 01/26/17 09:39; Start 01/26/17 at 10:00; Stop 01/26/17 at 10:01; Status DC Levofloxacin (Levaquin) 500 mg DAILY06 PO Last administered on 01/27/17 06:28; Start 01/26/17 at 11:00 Aspirin (Ecotrin) 81 mg DAILYWBKFT PO Last administered on 01/26/17 15:21; Start 01/26/17 at 14:00 Active Scripts Active Reported Folic Acid 1 Mg Tablet 1 Tab PO DAILY Pantoprazole Sodium 40 Mg Tablet.dr 1 Tab PO DAILY Loratadine 10 Mg Tablet 1 Tab PO DAILY Losartan-Hctz 50-12.5 Mg Tab (Losartan/Hydrochlorothiazide) 1 Each Tablet 1 Tab PO DAILY Ferrous Sulfate 325 Mg Tablet 1 Tab PO DAILY Vitals/I & O Vital Sign - Last 24 Hours 01/26/17 01/26/17 01/26/17 01/26/17 10:15 11:16 11:53 14:48 Temp 98.0 98.1 97.9 98.0 98.1 97.9 Pulse 108 104 104 Resp 20 17 24 B/P 111/67 91/64 86/60 Pulse Ox 98 99 96 99 O2 Delivery Room Air Room Air Room Air Room Air 01/26/17 01/26/17 01/26/17 01/26/17 16:05 19:00 19:12 20:00 Temp 98.6 98.6 Pulse 101 Resp 20 B/P 98/64 Pulse Ox 99 98 O2 Delivery Room Air Room Air Room Air 01/26/17 01/27/17 01/27/17 01/27/17 23:00 03:00 07:00 08:46 Temp 98.1 98.5 97.8 98.1 98.5 97.8 Pulse 100 96 91 Resp 18 18 18 B/P 95/67 90/59 98/53 Pulse Ox 97 98 99 97 O2 Delivery Room Air Room Air Intake and Output 01/26/17 01/26/17 01/27/17 15:00 23:00 07:00 Intake Total 360 ml Output Total 1 ml 200 ml Balance 359 ml -200 ml MANUELA ALCAZAR MD Jan 27, 2017 09:12
[2017-01-27] MEDS ORDERED: ASPI81TA9 PO (09:15)
--- NOTE | 2017-01-27 10:02 | PDOC ---
Infectious Disease Note Subjective Subjective Feels better. Less congestion. Eating well and ready to go home ROS ROS GEN: Denies fevers, chills, sweats HEENT: Denies blurred vision, sore throat CV: Denies chest pain RESP: Denies shortness of air, cough GI: Denies n/v/d NEURO: Denies confusion, dizziness MSK: Denies weakness, joint pain/swelling Vital Sign Vital Signs Vital Signs Date Time Temp Pulse Resp B/P Pulse Ox O2 Delivery O2 Flow Rate FiO2 01/27/17 08:46 97 Room Air 01/27/17 07:00 97.8 91 18 98/53 97.8 Physical Exam PHYSICAL EXAM GENERAL: NAD, Alert, in bed HEENT: PERRL, OC/OP - poor dentition NECK: Supple, no JVD, no LN LUNGS: Clear HEART: S1S2, no gallop, no murmur ABD: Soft, NT, no organomegaly, no rebound EXT: No edema, no cyanosis FLEET SERVICE MANAGER: Alert, oriented x 3, no focal neurologic deficit SKIN: No rash IV: ok Labs Lab Laboratory Tests Test 01/27/17 03:50 White Blood Count 6.7x10^3/uL (4.0-11.0) Red Blood Count 2.52x10^6/uL (4.30-5.70) Hemoglobin 8.9g/dL (13.0-17.5) Hematocrit 26.5% (39.0-53.0) Mean Corpuscular Volume 105fL (79-100) Mean Corpuscular Hemoglobin 35pg (25-35) Mean Corpuscular Hemoglobin Concent 34g/dL (31-37) Red Cell Distribution Width 16.0% (11.5-14.5) Platelet Count 265x10^3/uL (140-400) Sodium Level 135mmol/L (136-145) Potassium Level 4.4mmol/L (3.5-5.1) Chloride Level 102mmol/L (98-107) Carbon Dioxide Level 23mmol/L (21-32) Anion Gap 10 (6-14) Blood Urea Nitrogen 5mg/dL (8-26) Creatinine 0.9mg/dL (0.7-1.3) Estimated GFR (Cockcroft-Gault) 85.0 Glucose Level 98mg/dL (70-99) Calcium Level 8.0mg/dL (8.5-10.1) Objective Assessment Fever ? atypical vs aspiration -imporved pleural effusions/Irregular right consolidation. h/o N/V. Small on CXR Poor dentition SMA occlusion Plan Plan of Care Ok to d/c home Levoflox /Zyvox/Flagyl for 5 days. Rx given. Has Medicaid so should be covered F/u PCP AMANDA HILARIO MD Jan 27, 2017 10:02
--- NOTE | 2017-01-27 10:50 | DS ---
DATE OF DISCHARGE: 01/27/2017 CHIEF COMPLAINT: Altered mental status. HISTORY OF PRESENT ILLNESS: The patient is a 66-year-old male with a history of COPD and alcohol abuse who presented to the Emergency Room with the above complaint. The patient reported his last drink of alcohol had been about one week prior to that. He had developed nausea, vomiting and diarrhea. He was unable to keep down any food and very little liquid for about 8 days. He grew progressively weaker and was brought to the Emergency Room. Evaluation showed him to be septic with leukocytosis, hypotension and encephalopathy, and he was admitted for further treatment. HOSPITAL COURSE: The patient was admitted and seen in consultation by Cardiology, Infectious Disease and Vascular Surgery. He was initially started on Rocephin. Blood and urine cultures did not show any significant growth. His hypotension required pressors for a short time, but improved with increased IV fluids and the pressors were discontinued. He continued to have intermittent fevers for several more days. Infectious Disease was consulted and the patient was placed on broad spectrum antibiotics. Since then, he has had no fevers for the past 48 hours and states that he feels much better. His encephalopathy has resolved and he appears to be at his baseline mental status. An echocardiogram was done which showed a preserved ejection fraction with some mild diastolic dysfunction. The patient's initial chest x-ray was clear. After several days in the hospital, he did develop some pleural effusions and a little vascular congestion. This was treated with several doses of IV Lasix and appears to have improved. He is not hypoxic on room air. A CTA of the chest was done which did not show pulmonary embolism. It did, however, show a 70% stenosis of the SMA. The patient denied any abdominal pain with meals. He was seen by Dr. Sanchez who did not feel any intervention was necessary at this time. The patient is advised a baby aspirin daily. He is to follow up with Dr. Sanchez in 6 months or sooner if symptoms occur. The patient had some mild tachycardia, which Cardiology felt was reactive. The patient has a history of hypertension, but has not needed any blood pressure medication while he has been here. His blood pressure is now within the normal range without medication. This will be followed as an outpatient and his medications resumed if needed. The patient has some mild anemia, which appears to be chronic with a baseline of about 9 for his hemoglobin. Vitamin B12 is slightly above the normal range. TSH was normal and he is advised to continue his iron and folate daily. The patient does have a long history of intermittent alcohol abuse. This was discussed with him and he states his intention to discontinue alcohol. He had some significant debility associated with his illness. He has been receiving physical and occupational therapy, and his strength appears to be improving. He will return home with his girlfriend and is advised to increase his activity level as he is able. He will be discharged to home today if all consultants are in agreement. Oral antibiotics will be as per Dr. Caldera's recommendations. FINAL DIAGNOSES: 1. Sepsis with unknown source. 2. Metabolic encephalopathy. 3. Alcohol abuse. 4. Anemia. 5. Mild diastolic congestive heart failure. 6. Hypertension. 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 DISCHARGE MEDICATIONS: Aspirin 81 mg daily, folate 1 mg daily, iron 325 mg daily, loratadine 10 mg daily, pantoprazole 40 mg daily. The patient's blood pressure medication has been stopped. Follow up with Dr. Alcazar in 1-2 weeks. Follow up with Dr. Sanchez in 6 months. MANUELA ALCAZAR MD DR: SHARON/rodney JOB#: [id number] / [id number]
[2017-01-27 10:55] VITALS: BP 97/69
[2017-01-27 15:01] VITALS: BP 103/73
== END 2017-01-27 17:41 | disposition home or self-care (01) | DRG 871 ==
LOC: ER 15:35 → 1 WEST ICU 17:20 → 5 SOUTH 01-23 17:26
PROVIDERS: ADMIT Family Medicine; ATTEND Family Medicine
DX: A41.9 Sepsis, unspecified organism (principal); E43 Unspecified severe protein-calorie malnutrition; G93.41 Metabolic encephalopathy; I50.33 Acute on chronic diastolic (congestive) heart failure; N39.0 Urinary tract infection, site not specified; K55.1 Chronic vascular disorders of intestine; I77.4 Celiac artery compression syndrome; E87.2 Acidosis; F10.10 Alcohol abuse, uncomplicated; F12.90 Cannabis use, unspecified, uncomplicated; I11.0 Hypertensive heart disease with heart failure; J44.9 Chronic obstructive pulmonary disease, unspecified; E87.6 Hypokalemia; B19.20 Unspecified viral hepatitis C without hepatic coma; E86.0 Dehydration; D50.9 Iron deficiency anemia, unspecified; F41.9 Anxiety disorder, unspecified; F32.9 Major depressive disorder, single episode, unspecified; F17.210 Nicotine dependence, cigarettes, uncomplicated; Z79.899 Other long term (current) drug therapy; Z68.25 Body mass index [BMI] 25.0-25.9, adult
CPT/HCPCS: 36415; 70450; 71010; 71020; 71275; 74177; 80048; 80053; 81001; 82140; 82550; 82607; 83605; 83690; 83735; 83880; 84132; 84145; 84443; 84484; 85027; 85610; 85730; 87040; 87086; 87641; 93306; 94250; 94640; 94760; 96361; 96374; 96375; G0480; G0481; J0696; J1630; J1940; J1956; J2405; J3475; J3480; J7030; J7050; J7620; Q9966; Q9967; 97110; 97116; 97530; 97535; 99285-25

== ENCOUNTER 2018-07-29 22:01 | Emergency (ER) | payer OTHER ==
[~2018-07-29] VITALS: Ht 172.7 cm; Wt 63.5 kg
[~2018-07-29 22:01] MED LIST: ASPI-612 PO; FERR325T14 PO; FOLI1TAB16 PO; LORA10TA3 PO; LOSA1TAB19 PO; PANT40TA5 PO
[2018-07-29 23:20] LABS: BASO # 0.1 x10^3/uL (0.0-0.2); BASO % 1 % (0-3); EOS % 0 % (0-3); HEMATOCRIT 33.3 % (39.0-53.0); HEMOGLOBIN 11.8 g/dL (13.0-17.5); LYMPH # 1.4 x10^3/uL (1.0-4.8); LYMPH % 16 % (24-48); MEAN CORPUSCULAR HEMOGLOBIN 37 pg (25-35); MEAN CORPUSCULAR HGB CONC 36 g/dL (31-37); MEAN CORPUSCULAR VOLUME 104 fL (79-100); MONO # 0.7 x10^3/uL (0.0-1.1); MONO % 8 % (0-9); NEUT # 6.7 x10^3uL (1.8-7.7); NEUT % 75 % (31-73); PLATELET COUNT 224 x10^3/uL (140-400); RED CELL DISTRIBUTION WIDTH 14.7 % (11.5-14.5); WHITE BLOOD COUNT 8.9 x10^3/uL (4.0-11.0)
[2018-07-29 23:32] LABS: CALCIUM 7.7 mg/dL (8.5-10.1); CREATININE 0.9 mg/dL (0.7-1.3); GFR 84.4; POTASSIUM 4.3 mmol/L (3.5-5.1)
--- NOTE | 2018-07-29 23:33 | RAD ---
CT head without contrast: Reason for examination: Fell off bed with head and neck pain. Altered mental status. Comparison is made to previous study dated 01/21/2017. Axial images were obtained through the brain. No contrast was administered. The ventricular systems are prominent but symmetric as are the cerebral sulci and fissures consistent with generalized cerebral atrophy. No midline shift is seen. There is no evidence of intracranial hemorrhage. No acute infarct, mass or edema is seen. No abnormalities are seen at the orbits. The paranasal sinuses and mastoid air cells are clear. No abnormality seen in the skull. IMPRESSION: Generalized cerebral atrophy. No acute intracranial abnormality evident. CT cervical spine without contrast: Helical images were obtained through the cervical spine from skull base through the thoracic apices. No contrast was administered. Reconstruction was performed in sagittal and coronal planes. The C1 ring is intact. The odontoid process is intact and normally centered between the lateral masses of C1. The vertebral bodies of the cervical spine are normally aligned anteriorly and posteriorly. No acute fracture or subluxation is seen. Posterior elements appear to be intact. There are however degenerative changes at the facet joints which appears to most prominent at the C3-4 and C4-5 levels and there is degenerative disc disease at the C 5/6 and C6-7 levels. Prevertebral soft tissues are normal. IMPRESSION: Degenerative spondylosis from C3 through C7. No acute abnormality in the cervical spine. Exposure: One or more of the following individualized dose reduction techniques were utilized for this examination: 1. Automated exposure control 2. Adjustment of the mA and/or kV according to patient size 3. Use of iterative reconstruction technique. Electronically signed by: Kaylie Izaguirre MD (07/29/2018 11:30 PM) [facility]
[2018-07-29 23:37] LABS: ALBUMIN/GLOBULIN RATIO 0.6 (1.0-1.7); TOTAL BILIRUBIN 0.8 mg/dL (0.2-1.0); TOTAL PROTEIN 5.4 g/dL (6.4-8.2)
[2018-07-30 00:19] LABS: BILIRUBIN,URINE SMALL (NEG); CLARITY,URINE CLEAR; COLOR,URINE ORANGE; NITRITE,URINE NEGATIVE (NEG); PH,URINE 5.5; PROTEIN,URINE 30 mg/dL (NEG-TRACE)
[2018-07-30 00:30] VITALS: BP 78/50
[2018-07-30 00:31] LABS: AMORPHOUS SEDIMENT,UR PRESENT /HPF; BACTERIA,URINE MANY /HPF (0-FEW); HYALINE CASTS, URINE OCCASIONAL /HPF; RBC,URINE OCC /HPF (0-2); SQUAMOUS EPITHELIAL CELL,UR OCC /LPF
--- NOTE | 2018-07-30 01:09 | EKG ---
[facility] [address] [place] [address] Test Date: 2018-07-29 Test Time: 22:58:18 Pat Name: MAGDIEL BURNS Department: Room: Gender: M Food Service Representative: JENNIFER : 1950 Requested By: GAEL MILLER Order Number: [id number] Reading MD: Andrew Brock MD Measurements Intervals [place] Rate: 93 P: 64 [place]: 178 QRS: 40 QRSD: 54 T: 40 QT: 384 QTc: 480 Interpretive Statements SINUS RHYTHM LOW VOLTAGE ARTIFACT Electronically Signed On 08-01-2018 12:18:50 CDT by Andrew Brock MD
--- NOTE | 2018-07-30 01:39 | PHYS DOC ---
Past Medical History Past Medical History: Alcoholism, Asthma, GERD, High Cholesterol, Other Additional Past Medical Histor: HYPOTENSION Past Surgical History: Other Additional Past Surgical Histo: cataract Alcohol Use: Heavy Drug Use: None Adult General Chief Complaint Chief Complaint: MECHANICAL FALL HPI HPI 68-year-old male [facility] with report of fall out of bed at approximately 2130. Patient denies any complaint. EMS reports [facility] was concerned for possible internal bleeding as patient has some type of "bleeding disorder ". EMS reports nursing staff was unaware of what type of disorder it was. Patient does have a history of liver disease secondary to alcoholism with history of cirrhosis. Patient denies any neck pain. Patient did sustain a abrasion/skin tear to right dorsum of hand which [facility] addressed with Steri-Strips. EMS also reports that nurses were concerned for possible altered mental status. Review of Systems Review of Systems Constitutional: Denies fever or chills [] Eyes: Denies change in visual acuity, redness, or eye pain [] HENT: Denies nasal congestion or sore throat [] Respiratory: Denies cough or shortness of breath [] Cardiovascular: Denies chest pain or palpitations GI: Denies abdominal pain, nausea, vomiting, or diarrhea [] : Denies dysuria or hematuria [] Musculoskeletal: Denies back pain or joint pain [] Integument: Denies laceration, reports skin tear/abrasion to right hand Neurologic: Denies headache, focal weakness or sensory changes [] Complete systems were reviewed and found to be within normal limits, except as documented in this note. Allergies Allergies Allergies Coded Allergies Type Severity Reaction Last Updated Verified No Known Drug Allergies 01/22/17 No Physical Exam Physical Exam Constitutional: Well developed, well nourished, no acute distress, HENT: Normocephalic, atraumatic, oropharynx moist Eyes: PERRL, EOMI, scleral icterus noted, no discharge. [] Neck: Normal range of motion, no mild tenderness, supple, no meningeal signs[] Cardiovascular: Heart rate regular rhythm, no murmur [] Lungs & Thorax: Bilateral breath sounds clear to auscultation [] Abdomen: Soft, no tenderness, fluid wave consistent with ascites Skin: Warm, dry, no erythema, multiple bruises/abrasions at different stages of healing to bilateral upper extremities, small skin tear to right dorsum of hand which is repaired with Steri-Strips Back: No midline tenderness, no CVA tenderness. [] Extremities: No tenderness, ROM intact, mild edema. [] Neurologic: Alert and oriented X 3, normal motor function, normal sensory function, no focal deficits noted. [] Psychologic: Affect normal, judgement normal, mood normal. [] Current Patient Data Vital Signs Vital Signs Date Time Temp Pulse Resp B/P (MAP) Pulse Ox O2 Delivery O2 Flow Rate FiO2 07/30/18 00:30 90 95 07/29/18 23:30 14 07/29/18 22:08 98.5 85/47 (60) Room Air 98.5 Lab Values Laboratory Tests Test 07/29/18 22:55 07/29/18 23:59 White Blood Count 8.9 x10^3/uL (4.0-11.0) Red Blood Count 3.20 x10^6/uL (4.30-5.70) L Hemoglobin 11.8 g/dL (13.0-17.5) L Hematocrit 33.3 % (39.0-53.0) L Mean Corpuscular Volume 104 fL (79-100) H Mean Corpuscular Hemoglobin 37 pg (25-35) H Mean Corpuscular Hemoglobin Concent 36 g/dL (31-37) Red Cell Distribution Width 14.7 % (11.5-14.5) H Platelet Count 224 x10^3/uL (140-400) Neutrophils (%) (Auto) 75 % (31-73) H Lymphocytes (%) (Auto) 16 % (24-48) L Monocytes (%) (Auto) 8 % (0-9) Eosinophils (%) (Auto) 0 % (0-3) Basophils (%) (Auto) 1 % (0-3) Neutrophils # (Auto) 6.7 x10^3uL (1.8-7.7) Lymphocytes # (Auto) 1.4 x10^3/uL (1.0-4.8) Monocytes # (Auto) 0.7 x10^3/uL (0.0-1.1) Eosinophils # (Auto) 0.0 x10^3/uL (0.0-0.7) Basophils # (Auto) 0.1 x10^3/uL (0.0-0.2) Prothrombin Time 16.0 SEC (11.7-14.0) H Prothrombin Time INR 1.3 (0.8-1.1) H PTT 33 SEC (24-38) Sodium Level 133 mmol/L (136-145) L Potassium Level 4.3 mmol/L (3.5-5.1) Chloride Level 97 mmol/L (98-107) L Carbon Dioxide Level 29 mmol/L (21-32) Anion Gap 7 (6-14) Blood Urea Nitrogen 7 mg/dL (8-26) L Creatinine 0.9 mg/dL (0.7-1.3) Estimated GFR (Cockcroft-Gault) 84.4 BUN/Creatinine Ratio 8 (6-20) Glucose Level 108 mg/dL (70-99) H Lactic Acid Level 2.2 mmol/L (0.4-2.0) H Calcium Level 7.7 mg/dL (8.5-10.1) L Magnesium Level 2.0 mg/dL (1.8-2.4) Total Bilirubin 0.8 mg/dL (0.2-1.0) Aspartate Amino Transferase (AST) 52 U/L (15-37) H Alanine Aminotransferase (ALT) 42 U/L (16-63) Alkaline Phosphatase 157 U/L (46-116) H Ammonia 25 mcmol/L (11-34) Creatine Kinase 122 U/L (39-308) Creatine Kinase MB (Mass) 1.3 ng/mL (0.0-3.6) Creatine Kinase MB Relative Index 1.1 % (0-4) Troponin I Quantitative 0.019 ng/mL (0.000-0.055) Total Protein 5.4 g/dL (6.4-8.2) L Albumin 2.0 g/dL (3.4-5.0) L Albumin/Globulin Ratio 0.6 (1.0-1.7) L Urine Collection Type Unknown Urine Color [place] Urine Clarity Clear Urine pH 5.5 Urine Specific [place] >=1.030 Urine Protein 30 mg/dL (NEG-TRACE) Urine Glucose (UA) Negative mg/dL (NEG) Urine Ketones (Stick) Trace mg/dL (NEG) Urine Blood Negative (NEG) Urine Nitrite Negative (NEG) Urine Bilirubin Small (NEG) Urine Urobilinogen Dipstick 1.0 mg/dL (0.2 mg/dL) Urine Leukocyte Esterase Small (NEG) Urine RBC Occ /HPF (0-2) Urine WBC 5-10 /HPF (0-4) Urine Squamous Epithelial Cells Occ /LPF Urine Amorphous Sediment Present /HPF Urine Bacteria Many /HPF (0-FEW) Urine Hyaline Casts Occasional /HPF Urine Mucus Slight /LPF Laboratory Tests 07/29/18 22:55 Laboratory Tests 07/29/18 22:55 EKG EKG @2258 NSR at 93bpm, low voltage QRS, NO ST elevation Radiology/Procedures Radiology/Procedures PROCEDURE: CT HEAD AND CERVICAL SPINE WO CT head without contrast: Reason for examination: Fell off bed with head and neck pain. Altered mental status. Comparison is made to previous study dated 01/21/2017. Axial images were obtained through the brain. No contrast was administered. The ventricular systems are prominent but symmetric as are the cerebral sulci and fissures consistent with generalized cerebral atrophy. No midline shift is seen. There is no evidence of intracranial hemorrhage. No acute infarct, mass or edema is seen. No abnormalities are seen at the orbits. The paranasal sinuses and mastoid air cells are clear. No abnormality seen in the skull. IMPRESSION: Generalized cerebral atrophy. No acute intracranial abnormality evident. CT cervical spine without contrast: Helical images were obtained through the cervical spine from skull base through the thoracic apices. No contrast was administered. Reconstruction was performed in sagittal and coronal planes. The C1 ring is intact. The odontoid process is intact and normally centered between the lateral masses of C1. The vertebral bodies of the cervical spine are normally aligned anteriorly and posteriorly. No acute fracture or subluxation is seen. Posterior elements appear to be intact. There are however degenerative changes at the facet joints which appears to most prominent at the C3-4 and C4-5 levels and there is degenerative disc disease at the C 5/6 and C6-7 levels. Prevertebral soft tissues are normal. IMPRESSION: Degenerative spondylosis from C3 through C7. No acute abnormality in the cervical spine. Exposure: One or more of the following individualized dose reduction techniques were utilized for this examination: 1. Automated exposure control 2. Adjustment of the mA and/or kV according to patient size 3. Use of iterative reconstruction technique. Electronically signed by: Kaylie Izaguirre MD (07/29/2018 11:30 PM) [facility] PROCEDURE: CHEST PA & LATERAL Chest PA and lateral: Reason for examination: Altered mental status with weakness. Comparison is made to previous study dated 01/25/2017. The heart size is normal. Mediastinum is unremarkable. Lung partida show some chronic blunting at the right costophrenic angle which is unchanged. There are no acute infiltrates or pleural effusions seen. No acute bony abnormalities are seen. Impression: No acute cardiopulmonary disease. Electronically signed by: Kaylie Izaguirre MD (07/30/2018 3:44 AM) [facility] Course & Med Decision Making Course & Med Decision Making Pertinent Labs and Imaging studies reviewed. (See chart for details) [facility] with concern for altered mental status as well as injury after fall out of bed. EMS reports [facility] concern for possible bleeding due to patient's chronic bleeding disorder. Patient does appear to have liver disease secondary to cirrhosis which would explain possible increased risk of bleeding. Labs obtained and posted to chart. INR elevated. Ammonia within normal limits UA with signs of contamination. Slight elevation of lactic acid noted. EKG stable. Patient currently neurologically intact. CT head/cervical spine without acute process. Chest x- ray clear Patient stable for discharge with outpatient follow-up with PCP. Discussed findings and plan with patient, who acknowledges understanding and agreement. Dragon Disclaimer Dragon Disclaimer This electronic medical record was generated, in whole or in part, using a voice recognition dictation system. Departure Departure Impression: Primary Impression: Altered mental status Additional Impressions: Fall Skin tear Disposition: 03 TRANSFER SNF Condition: IMPROVED Referrals: MANUELA ALCAZAR MD (PCP) Patient Instructions: Altered Mental Status, Fall Prevention in Hospitals Problem Qualifiers Primary Impression: Altered mental status Altered mental status type: unspecified Qualified Codes: R41.82 - Altered mental status, unspecified Additional Impressions: Fall Encounter type: initial encounter Qualified Codes: W19.XXXA - Unspecified fall, initial encounter GAEL MILLER DO Jul 30, 2018 01:39
--- NOTE | 2018-07-30 03:47 | RAD ---
Chest PA and lateral: Reason for examination: Altered mental status with weakness. Comparison is made to previous study dated 01/25/2017. The heart size is normal. Mediastinum is unremarkable. Lung partida show some chronic blunting at the right costophrenic angle which is unchanged. There are no acute infiltrates or pleural effusions seen. No acute bony abnormalities are seen. Impression: No acute cardiopulmonary disease. Electronically signed by: Kaylie Izaguirre MD (07/30/2018 3:44 AM) [facility]
== END 2018-07-30 04:16 | disposition home or self-care (01) ==
LOC: ER 22:01
DX: S61.411A Laceration without foreign body of right hand, initial encounter (principal); R41.82 Altered mental status, unspecified; E78.00 Pure hypercholesterolemia, unspecified; J45.909 Unspecified asthma, uncomplicated; K21.9 Gastro-esophageal reflux disease without esophagitis; F10.20 Alcohol dependence, uncomplicated; W06.XXXA Fall from bed, initial encounter; Y93.89 Activity, other specified; Y92.89 Other specified places as the place of occurrence of the external cause; Y99.8 Other external cause status
CPT/HCPCS: 36415; 70450; 71046; 72125; 80053; 81001; 82140; 82553; 83605; 83735; 84484; 85025; 85610; 85730; 87086; 93005; 99285-25